=== PATIENT | female | born 1965 | race Caucasian/White ===

== ENCOUNTER 2022-06-17 12:23 | Observation (INO) | payer OTHER ==
[2022-06-17] MEDS ORDERED: Sodium Chloride 0.9% 1000 ML 1,000 ML IV STA (12:51)
--- NOTE | 2022-06-17 13:11 | ERPHSYRPT ---
- History of Present Illness Time Seen by Provider: 06/17/22 13:07 Source: patient Exam Limitations: no limitations Patient Subjective Stated Complaint: Pt c/o of vomiting, left leg pain, body aches, hip pain, cough all since after eating [employer] Triage Nursing Assessment: Pt brought to the ER by her daughter, hypertensive, rates pain as 10/10, appears weak, chronic hip pain, chronic lumbar pain, pulses normal, skin n/w/d, N&V, denies diarrhea, all over body aches, unstable gait walking to the restroom from the waiting room Physician History: Patient is 56-year-old female started having abdominal pain nausea vomiting since last after she ate at [employer]. She was taken into the emergency room on Saturday at [facility] where she was diagnosed with nausea and vomiting was given some medication but her symptoms continues to get worse and now she is complaining of generalized malaise hip pain leg pain also shortness of breath chest congestion. She is also complaining of low-grade fever. She denies any urine trouble nausea or vomiting. Timing/Duration: day(s) (2-3 days) Severity: moderate Associated Symptoms: malaise, weakness Allergies/Adverse Reactions: morphine Allergy (Verified 06/17/22 13:04) Home Medications: Diclofenac Sodium 75 mg PO BID 06/17/22 [History] Ondansetron [Ondansetron Odt ] 4 mg PO Q6H 06/17/22 [History] Prednisone 20 mg [Deltasone 20 mg] 40 mg PO QAM 06/17/22 [History] Hx Influenza Vaccination/Date Given: No Hx Pneumococcal Vaccination/Date Given: No Travel Risk - International Travel Have you traveled outside of the country in past 3 weeks: No - Coronavirus Screening Symptoms: Cough: New Onset, Vomiting/Diarrhea, Headaches/Body Aches/Fatigue Close contact with a COVID-19 positive Pt in past 14-21 Days: No - Vaccine Status Have you recieved a Covid-19 vaccination: No - Review of Systems Constitutional: Weakness, No Fever, No Chills Eyes: No Symptoms Ears, Nose, & Throat: No Symptoms Respiratory: Cough, Dyspnea on Exertion (ESPINOZA), No Dyspnea Cardiac: No Chest Pain, No Edema, No Syncope Abdominal/Gastrointestinal: No Abdominal Pain, No Nausea, No Vomiting, No Diarrhea Genitourinary Symptoms: No Dysuria Musculoskeletal: No Back Pain, No Neck Pain Skin: No Rash Neurological: No Dizziness, No Focal Weakness, No Sensory Changes Psychological: No Symptoms Endocrine: No Symptoms All Other Systems: Reviewed and Negative - Past Medical History Pertinent Past Medical History: Yes Cardiac History: Hypertension Musculoskeletal History: Other - Past Surgical History Past Surgical History: Yes Musculoskeletal: Orthopedic Surgery - Social History Smoking Status: Current every day smoker Exposure to second hand smoke: Yes Drug Use: marijuana Patient Lives Alone: No - Nursing Vital Signs Nursing Vital Signs: Initial Vital Signs Temperature 97.8 F 06/17/22 12:43 Pulse Rate 99 H 06/17/22 12:43 Respiratory Rate 14 06/17/22 12:43 Blood Pressure 180/97 06/17/22 12:43 O2 Sat by Pulse Oximetry 94 L 06/17/22 12:43 Pain Scale Pain Intensity 10 - Physical Exam General Appearance: no apparent distress, alert Eye Exam: PERRL/EOMI, eyes nml inspection Ears, Nose, Throat Exam: normal ENT inspection, TMs normal, pharynx normal, moist mucous membranes Neck Exam: normal inspection, non-tender, supple, full range of motion Respiratory Exam: diminished breath sounds, crackles/rales, No respiratory distress Cardiovascular Exam: regular rate/rhythm, normal heart sounds, normal peripheral pulses Gastrointestinal/Abdomen Exam: soft, normal bowel sounds, No tenderness, No mass Back Exam: normal inspection, normal range of motion, No CVA tenderness, No vertebral tenderness Extremity Exam: normal inspection, normal range of motion, pelvis stable Neurologic Exam: alert, oriented x 3, cooperative, normal mood/affect, nml cerebellar function, nml station & gait, sensation nml, No motor deficits Skin Exam: normal color, warm, dry, No rash Lymphatic Exam: No adenopathy SpO2: 94 Ordered Tests: Active Orders 24 hr Category Date Time Status EKG-ER Only STAT Care 06/17/22 12:51 Active IV Insertion STAT Care 06/17/22 12:51 Active CHEST 2 VIEWS (PA AND LAT) Stat Exams 06/17/22 13:22 Taken AMYLASE Stat Lab 06/17/22 13:03 Completed CBC W DIFF Stat Lab 06/17/22 13:03 Completed CMP Stat Lab 06/17/22 13:03 Completed CULTURE,URINE Stat Lab 06/17/22 13:03 Received LIPASE Stat Lab 06/17/22 13:03 Completed Manual Differential NC Stat Lab 06/17/22 13:03 Completed TROPONIN Stat Lab 06/17/22 13:03 Completed UA W/RFX CULTURE Stat Lab 06/17/22 13:03 Results Urine Triage Profile Stat Lab 06/17/22 13:03 Completed Medication Summary Generic Name Dose Route Start Last Admin Trade Name Freq PRN Reason Stop Dose Admin Ceftriaxone Sodium/Dextrose 1 g in 50 mls @ 100 mls/hr 06/17/22 13:54 Rocephin 1 Gm-D5w 50 Ml Bag IV 06/17/22 14:23 STAT STA Discontinued Medications Generic Name Dose Route Start Last Admin Trade Name Freq PRN Reason Stop Dose Admin Sodium Chloride 1,000 mls @ 999 mls/hr 06/17/22 12:51 06/17/22 13:33 Sodium Chloride 0.9% 1000 Ml IV 06/17/22 13:51 999 mls/hr .Q1H1M STA Administration Sodium Chloride Confirm 06/17/22 13:32 Sodium Chloride 0.9% 1000 Ml Administered 06/17/22 13:33 Dose 1,000 mls @ ud .ROUTE .STK-MED ONE Lab/Rad Data: Laboratory Result Diagrams 06/17/22 13:03 06/17/22 13:03 Laboratory Results 06/17/22 06/17/22 06/17/22 Range/Units 13:03 13:03 13:03 WBC 14.2 H (4.0-10.5) x10^3/uL RBC 4.87 (4.1-5.4) x10^6/uL Hgb 15.3 (12.0-16.0) g/dL Hct 45.2 (35-47) % MCV 92.8 (78-100) fL MCH 31.4 (26-32) pg MCHC 33.8 (32-36) g/dL RDW 13.4 (11.5-14.0) % Plt Count 104 L (150-450) x10^3/uL MPV 11.2 H (7.5-11.0) fL Sodium 129 L (137-145) mmol/L Potassium 3.8 (3.5-5.1) mmol/L Chloride 94 L (98-107) mmol/L Carbon Dioxide 24 (22-30) mmol/L Anion Gap 14.3 (5-15) MEQ/L BUN 41 H (7-17) mg/dL Creatinine 2.10 H (0.52-1.04) mg/dL Estimated GFR 25.8 ML/MIN Glucose 115 H (74-106) mg/dL Calcium 8.1 L (8.4-10.2) mg/dL Total Bilirubin 1.70 H (0.2-1.3) mg/dL AST 37 H (14-36) U/L ALT 28 (0-35) U/L Alkaline Phosphatase 103 (38-126) U/L Troponin I < 0.012 (0.000-0.034) ng/mL Serum Total Protein 7.2 (6.3-8.2) g/dL Albumin 3.6 (3.5-5.0) g/dL Amylase 41 (30-110) U/L Lipase 18 L (23-300) U/L Urinalys Dipstick Clnc MAIN LAB Urine Color YELLOW (YELLOW) Urine Appearance CLEAR (CLEAR) Urine pH 5.5 (5-6) Ur Specific [place] 1.010 (1.005-1.025) POC Urine Protein Conf 100 (Negative) Urine Ketones NEGATIVE (NEGATIVE) Urine Nitrite NEGATIVE (NEGATIVE) Urine Bilirubin NEGATIVE (NEGATIVE) Urine Urobilinogen 1 (0-1) mg/dL Urine Leukocytes NEGATIVE (NEGATIVE) Urine WBC (Auto) Pending Urine RBC (Auto) Pending U Epithel Cells (Auto) Pending Urine Bacteria (Auto) Pending Urine RBC TRACE HEMOLYZED (0-5) Michel/ul Ur Culture Indicated? YES Urine Glucose NEGATIVE (NEGATIVE) mg/dL Urine Opiates Level (NEGATIVE) Ur Methadone (NEGATIVE) Urine Barbiturates (NEGATIVE) Ur Phencyclidine (PCP) (NEGATIVE) Urine Amphetamine (NEGATIVE) U Benzodiazepine Level (NEGATIVE) Urine Cocaine (NEGATIVE) Urine Marijuana (THC) (NEGATIVE) 06/17/22 Range/Units 13:03 WBC (4.0-10.5) x10^3/uL RBC (4.1-5.4) x10^6/uL Hgb (12.0-16.0) g/dL Hct (35-47) % MCV (78-100) fL MCH (26-32) pg MCHC (32-36) g/dL RDW (11.5-14.0) % Plt Count (150-450) x10^3/uL MPV (7.5-11.0) fL Sodium (137-145) mmol/L Potassium (3.5-5.1) mmol/L Chloride (98-107) mmol/L Carbon Dioxide (22-30) mmol/L Anion Gap (5-15) MEQ/L BUN (7-17) mg/dL Creatinine (0.52-1.04) mg/dL Estimated GFR ML/MIN Glucose (74-106) mg/dL Calcium (8.4-10.2) mg/dL Total Bilirubin (0.2-1.3) mg/dL AST (14-36) U/L ALT (0-35) U/L Alkaline Phosphatase (38-126) U/L Troponin I (0.000-0.034) ng/mL Serum Total Protein (6.3-8.2) g/dL Albumin (3.5-5.0) g/dL Amylase (30-110) U/L Lipase (23-300) U/L Urinalys Dipstick Clnc Urine Color (YELLOW) Urine Appearance (CLEAR) Urine pH (5-6) Ur Specific [place] (1.005-1.025) POC Urine Protein Conf (Negative) Urine Ketones (NEGATIVE) Urine Nitrite (NEGATIVE) Urine Bilirubin (NEGATIVE) Urine Urobilinogen (0-1) mg/dL Urine Leukocytes (NEGATIVE) Urine WBC (Auto) Urine RBC (Auto) U Epithel Cells (Auto) Urine Bacteria (Auto) Urine RBC (0-5) Michel/ul Ur Culture Indicated? Urine Glucose (NEGATIVE) mg/dL Urine Opiates Level NEGATIVE (NEGATIVE) Ur Methadone NEGATIVE (NEGATIVE) Urine Barbiturates NEGATIVE (NEGATIVE) Ur Phencyclidine (PCP) NEGATIVE (NEGATIVE) Urine Amphetamine NEGATIVE (NEGATIVE) U Benzodiazepine Level NEGATIVE (NEGATIVE) Urine Cocaine NEGATIVE (NEGATIVE) Urine Marijuana (THC) POSITIVE (NEGATIVE) - Progress Progress: unchanged Will see patient in: hospital (observation) Counseled pt/family regarding: lab results, diagnosis, need for follow-up, rad results - Departure Departure Disposition: Observation Clinical Impression: Acute renal injury due to hypovolemia, Pyelonephritis, Elevated liver enzymes Condition: Fair Critical Care Time: Yes Critical Care Time(excluding separately billable procedures): Critical 30-74 mi ns Referrals: Provider,Unknown [Primary Care Provider] - Follow up/PCP as directed
[2022-06-17 13:23] LABS: Hematocrit 45.2 % (35-47); Hemoglobin 15.3 g/dL (12.0-16.0); Mean Cell Volume 92.8 fL (78-100); Mean Corpuscular Hemoglobin 31.4 pg (26-32); Mean Corpuscular Hgb Concent. 33.8 g/dL (32-36); Mean Platelet Volume 11.2 fL (7.5-11.0); Platelet Count 104 x10^3/uL (150-450); Red Blood Count 4.87 x10^6/uL (4.1-5.4); Red Cell Distribution Width 13.4 % (11.5-14.0); White Blood Count 14.2 x10^3/uL (4.0-10.5)
[2022-06-17 13:30] LABS: Appearance CLEAR (CLEAR)
[2022-06-17 13:31] LABS: Bilirubin NEGATIVE (NEGATIVE); Dipstick done @ ? MAIN LAB; Glucose NEGATIVE (NEGATIVE); Ketones NEGATIVE (NEGATIVE); Nitrite NEGATIVE (NEGATIVE); Ph 5.5 (5-6); Protein,Urine Dip 100 (Negative); RBC TRACE HEMOLYZED Ery/ul (0-5); Urine Cultured Indicated? YES; Urobilinogen 1 mg/dL (0-1)
[2022-06-17] MEDS ORDERED: Sodium Chloride 0.9% 1000 ML 1,000 ML ONE (13:32)
[2022-06-17 13:37] LABS: Amphetamine,Urine NEGATIVE (NEGATIVE); Barbiturate,Urine NEGATIVE (NEGATIVE); Benzodiazepine,Urine NEGATIVE (NEGATIVE); Cocaine,Urine NEGATIVE (NEGATIVE); Methadone,Urine NEGATIVE (NEGATIVE); Opiate,Urine NEGATIVE (NEGATIVE); PCP,Urine NEGATIVE (NEGATIVE); THC,Urine POSITIVE (NEGATIVE)
[2022-06-17 13:45] LABS: ALBUMIN 3.6 g/dL (3.5-5.0); ALKALINE PHOSPHATASE 103 U/L (38-126); AMYLASE 41 U/L (30-110); ANION GAP 14.3 MEQ/L (5-15); BLOOD UREA NITROGEN 41 mg/dL (7-17); CHLORIDE 94 mmol/L (98-107); Calcium 8.1 mg/dL (8.4-10.2); Carbon Dioxide 24 mmol/L (22-30); EST GLOMERULAR FILTRATION RATE 25.8 ML/MIN; Glucose 115 mg/dL (74-106); LIPASE 18 U/L (23-300); Potassium 3.8 mmol/L (3.5-5.1); SGOT/AST 37 U/L (14-36); SGPT/ALT 28 U/L (0-35); SODIUM 129 mmol/L (137-145); TROPONIN < 0.012 ng/mL (0.000-0.034); Total Protein 7.2 g/dL (6.3-8.2)
[2022-06-17] MEDS ORDERED: ROCEPHIN 1 Gm-D5w 50 ml Bag** 1 G/50 ML IVPB IV STA (13:54)
[2022-06-17] MEDS ORDERED: ROCEPHIN 1 Gm-D5w 50 ml Bag** 1 G/50 ML IVPB IV ONE (14:09)
[2022-06-17 14:13] LABS: Amourphous Crystal FEW /HPF (NEGATIVE); Mucus SLIGHT /HPF (NEGATIVE); WBC 0-2 /HPF (0-5)
[2022-06-17 14:22] LABS: Bacteria FEW /HPF (NEGATIVE)
[2022-06-17 15:12] LABS: BAND 6 % (0.0-2.0); Lymphocytes 1 % (24-44); Monocyte 6 % (0.0-12.0); Total Cells Counted 100
[2022-06-17 15:14] LABS: Platelet Estimate INCREASED (NORMAL)
[2022-06-17 15:15] LABS: Hypersegmented Polys 1+
[2022-06-17 15:25] LABS: INFLUENZA A NEGATIVE (NEGATIVE); INFLUENZA B NEGATIVE (NEGATIVE); RESPIRATORY SYNCTIAL VIRUS NEGATIVE (Negative); SARS-CoV-2 Xpert Express NEGATIVE (NEGATIVE)
[2022-06-17] MEDS: SUBLIMAZE 100 MCG/2 ML IV PRN ×2 (16:33→22:36)
[2022-06-17] MEDS: PROTONIX 40 MG IV IV SCH (16:33)
[2022-06-17] MEDS: Zofran 4 MG/2 ML VIAL IV PRN ×2 (16:40→22:37)
[2022-06-17] MEDS: Sodium Chloride 0.9% 1000 ML 1,000 ML IV SCH (18:54)
[2022-06-17] MEDS: TRANDATE 20 MG/4 ML SYRINGE IV PRN (19:38)
[2022-06-17] MEDS: Pepcid 20 MG VIAL IV SCH (20:43)
--- NOTE | 2022-06-17 21:39 | XRAY ---
Indication: Short of breath. Vomiting. Suspect Covid 19. Comparison: None PA/lateral chest demonstrates left mid lung and right base subsegmental atelectasis/scarring. Remaining heart and lungs unremarkable. Bony thorax intact.
[2022-06-18] MEDS: Sodium Chloride 0.9% 1000 ML 1,000 ML IV SCH ×3 (01:19→21:05)
[2022-06-18] MEDS ORDERED: SUBLIMAZE 100 MCG/2 ML ONE (04:31)
[2022-06-18] MEDS: SUBLIMAZE 100 MCG/2 ML IV PRN ×4 (04:39→23:19)
[2022-06-18] MEDS: Zofran 4 MG/2 ML VIAL IV PRN ×4 (04:39→23:20)
[2022-06-18 06:09] LABS: Hematocrit 41.2 % (35-47); Hemoglobin 13.3 g/dL (12.0-16.0); Mean Corpuscular Hgb Concent. 32.3 g/dL (32-36); Mean Platelet Volume 11.8 fL (7.5-11.0); Platelet Count 80 x10^3/uL (150-450); Red Blood Count 4.29 x10^6/uL (4.1-5.4); Red Cell Distribution Width 13.5 % (11.5-14.0); White Blood Count 8.8 x10^3/uL (4.0-10.5)
[2022-06-18 06:15] LABS: ALBUMIN 2.9 g/dL (3.5-5.0); ANION GAP 9.2 MEQ/L (5-15); BILIRUBIN,TOTAL 1.1 mg/dL (0.2-1.3); Calcium 7.5 mg/dL (8.4-10.2); Creatinine 1 1.6 mg/dL (0.52-1.04); EST GLOMERULAR FILTRATION RATE 35.3 ML/MIN; Potassium 3.2 mmol/L (3.5-5.1); Total Protein 5.9 g/dL (6.3-8.2)
--- NOTE | 2022-06-18 09:28 | PCM.HP ---
History of Present Illness - Chief Complaint Chief Complaint: abdominal pain, hip and knee pain. for 3-4 days History of Present Illness: is a 56 year old female.started having abdominal pain nausea vomiting since last after she ate at [employer] She was taken into the emergen cy room on Saturday at [facility] where she was diagnosed with nausea and vomiting was given some medication but her symptoms continues to get worse and now she is complaining of generalized malaise hip pain leg pain also shortness of breath chest congestion. She is also complaining of low-grade fever. She denies any urine trouble nausea or vomiting. Timing/Duration: day(s) (2-3 days) Severity: moderate Associated Symptoms: malaise, weakness - Review of Systems Constitutional: No Fever, No Chills Eyes: No Symptoms Ears, Nose, & Throat: No Symptoms Respiratory: No Cough, No Short Of Breath Cardiac: No Chest Pain, No Edema, No Syncope Abdominal/Gastrointestinal: Abdominal Pain, Nausea, Vomiting, No Diarrhea Genitourinary Symptoms: No Dysuria Musculoskeletal: Joint Pain (hip and knee), No Back Pain, No Neck Pain Skin: No Rash Neurological: No Dizziness, No Focal Weakness, No Sensory Changes Psychological: No Symptoms Endocrine: No Symptoms Hematologic/Lymphatic: No Symptoms Immunological/Allergic: No Symptoms Medications & Allergies Home Medications: Home Medication List Diclofenac Sodium 75 mg PO BID 06/17/22 [History Confirmed 06/17/22] Ondansetron [Ondansetron Odt ] 4 mg PO Q6H 06/17/22 [History Confirmed 06/17/22] Prednisone 20 mg [Deltasone 20 mg] 40 mg PO QAM 06/17/22 [History Confirmed 06/17/22] Allergies/Adverse Reactions: Allergies Allergy/AdvReac Type Severity Reaction Status Date / Time morphine Allergy Verified 06/17/22 13:04 - Past Medical History Past Medical History: Yes Neurological History: No Pertinent History ENT History: No Pertinent History Cardiac History: Hypertension Respiratory History: No Pertinent History Endocrine Medical History: Hypothyroidism Musculoskelatal History: Other GI Medical History: No Pertinent History, Hepatitis History: No Pertinent History Pyscho-Social History: No Pertinent History Reproductive Disorders: No Pertinent History Comment: hepatitis c - Past Surgical History Past Surgical History: Yes Neuro Surgical History: No Pertinent History Cardiac History: No Pertinent History Respiratory Surgery: No Pertinent History GI Surgical History: No Pertinent History Genitourinary Surgical Hx: No Pertinent History Musculskeletal Surgical Hx: Orthopedic Surgery Female Surgical History: Section Other Surgical History: left rotator cuff - Social History Smoking Status: Current every day smoker How long have you smoked: 40 years Exposure to second hand smoke: No Alcohol: None Drug Use: marijuana - Physical Exam Vital Signs: Vital Signs - 24 hr Temp Pulse Resp BP Pulse Ox 06/18/22 07:50 95 06/18/22 07:36 98.6 F 81 16 182/82 96 06/18/22 07:00 98.6 F 81 16 182/82 96 06/18/22 04:00 97.3 F 80 17 160/74 95 06/17/22 23:46 97.1 F 83 17 160/76 98 06/17/22 23:20 98.7 F 78 16 149/78 94 L 06/17/22 20:47 78 149/78 06/17/22 19:48 98.7 F 88 16 185/93 94 L 06/17/22 19:15 94 L 06/17/22 15:30 97.9 F 84 16 209/95 96 06/17/22 15:29 97.9 F 84 16 209/95 96 06/17/22 15:15 97.8 F 80 19 94 L 06/17/22 14:39 80 19 154/113 94 L 06/17/22 14:01 94 L 06/17/22 12:43 97.8 F 99 H 14 180/97 94 L General Appearance: no apparent distress, alert Neurologic Exam: alert, oriented x 3, cooperative, normal mood/affect, nml cerebellar function, nml station & gait, sensation nml, No motor deficits Eye Exam: PERRL/EOMI, eyes nml inspection Ears, Nose, Throat Exam: normal ENT inspection, TMs normal, pharynx normal, moist mucous membranes Neck Exam: normal inspection, non-tender, supple, full range of motion Respiratory Exam: normal breath sounds, lungs clear, No respiratory distress Cardiovascular Exam: regular rate/rhythm, normal heart sounds, normal peripheral pulses Gastrointestinal/Abdomen Exam: soft, normal bowel sounds, No tenderness, No mass Back Exam: normal inspection, normal range of motion, No CVA tenderness, No vertebral tenderness Extremity Exam: normal inspection, normal range of motion, pelvis stable Skin Exam: normal color, warm, dry, No rash Lymphatic Exam: No adenopathy Results - Labs Lab/Micro Results: Lab Results-Last 24 Hours 06/17/22 06/17/22 06/17/22 Range/Units 13:03 13:03 13:03 WBC 14.2 H (4.0-10.5) x10^3/uL RBC 4.87 (4.1-5.4) x10^6/uL Hgb 15.3 (12.0-16.0) g/dL Hct 45.2 (35-47) % MCV 92.8 (78-100) fL MCH 31.4 (26-32) pg MCHC 33.8 (32-36) g/dL RDW 13.4 (11.5-14.0) % Plt Count 104 L (150-450) x10^3/uL MPV 11.2 H (7.5-11.0) fL Segmented Neutrophils 87 H (36.0-66.0) % Band Neutrophils 6 H (0.0-2.0) % Lymphocytes (Manual) 1 L (24-44) % Monocytes (Manual) 6 (0.0-12.0) % Hypersegmented Polys 1+ Platelet Estimate INCREASED (NORMAL) RBC Morphology ABNORMAL Sodium 129 L (137-145) mmol/L Potassium 3.8 (3.5-5.1) mmol/L Chloride 94 L (98-107) mmol/L Carbon Dioxide 24 (22-30) mmol/L Anion Gap 14.3 (5-15) MEQ/L BUN 41 H (7-17) mg/dL Creatinine 2.10 H (0.52-1.04) mg/dL Estimated GFR 25.8 ML/MIN Glucose 115 H (74-106) mg/dL Calcium 8.1 L (8.4-10.2) mg/dL Total Bilirubin 1.70 H (0.2-1.3) mg/dL AST 37 H (14-36) U/L ALT 28 (0-35) U/L Alkaline Phosphatase 103 (38-126) U/L Troponin I < 0.012 (0.000-0.034) ng/mL Serum Total Protein 7.2 (6.3-8.2) g/dL Albumin 3.6 (3.5-5.0) g/dL Amylase 41 (30-110) U/L Lipase 18 L (23-300) U/L Urinalys Dipstick Clnc Urine Color (YELLOW) Urine Appearance (CLEAR) Urine pH (5-6) Ur Specific [place] (1.005-1.025) POC Urine Protein Conf (Negative) Urine Ketones (NEGATIVE) Urine Nitrite (NEGATIVE) Urine Bilirubin (NEGATIVE) Urine Urobilinogen (0-1) mg/dL Urine Leukocytes (NEGATIVE) Urine WBC (Auto) (0-5) /HPF Urine RBC (Auto) (0-2) /HPF U Epithel Cells (Auto) (FEW) /HPF Urine Bacteria (Auto) (NEGATIVE) /HPF Urine RBC (0-5) Michel/ul Amorphous Crystals (NEGATIVE) /HPF Urine Mucus (Auto) (NEGATIVE) /HPF Ur Culture Indicated? Urine Glucose (NEGATIVE) mg/dL Urine Opiates Level NEGATIVE (NEGATIVE) Ur Methadone NEGATIVE (NEGATIVE) Urine Barbiturates NEGATIVE (NEGATIVE) Ur Phencyclidine (PCP) NEGATIVE (NEGATIVE) Urine Amphetamine NEGATIVE (NEGATIVE) U Benzodiazepine Level NEGATIVE (NEGATIVE) Urine Cocaine NEGATIVE (NEGATIVE) Urine Marijuana (THC) POSITIVE (NEGATIVE) Influenza Type A Ag (NEGATIVE) Influenza Type B Ag (NEGATIVE) RSV (PCR) (Negative) SARS-CoV-2 (PCR) (NEGATIVE) 06/17/22 06/17/22 06/18/22 Range/Units 13:03 Unknown 05:08 WBC (4.0-10.5) x10^3/uL RBC (4.1-5.4) x10^6/uL Hgb (12.0-16.0) g/dL Hct (35-47) % MCV (78-100) fL MCH (26-32) pg MCHC (32-36) g/dL RDW (11.5-14.0) % Plt Count (150-450) x10^3/uL MPV (7.5-11.0) fL Segmented Neutrophils (36.0-66.0) % Band Neutrophils (0.0-2.0) % Lymphocytes (Manual) (24-44) % Monocytes (Manual) (0.0-12.0) % Hypersegmented Polys Platelet Estimate (NORMAL) RBC Morphology Sodium 132 L (137-145) mmol/L Potassium 3.2 L (3.5-5.1) mmol/L Chloride 102 (98-107) mmol/L Carbon Dioxide 24 (22-30) mmol/L Anion Gap 9.2 (5-15) MEQ/L BUN 29 H (7-17) mg/dL Creatinine 1.60 H (0.52-1.04) mg/dL Estimated GFR 35.3 ML/MIN Glucose 119 H (74-106) mg/dL Calcium 7.5 L (8.4-10.2) mg/dL Total Bilirubin 1.10 (0.2-1.3) mg/dL AST 26 (14-36) U/L ALT 21 (0-35) U/L Alkaline Phosphatase 90 (38-126) U/L Troponin I (0.000-0.034) ng/mL Serum Total Protein 5.9 L (6.3-8.2) g/dL Albumin 2.9 L (3.5-5.0) g/dL Amylase (30-110) U/L Lipase (23-300) U/L Urinalys Dipstick Clnc MAIN LAB Urine Color YELLOW (YELLOW) Urine Appearance CLEAR (CLEAR) Urine pH 5.5 (5-6) Ur Specific [place] 1.010 (1.005-1.025) POC Urine Protein Conf 100 (Negative) Urine Ketones NEGATIVE (NEGATIVE) Urine Nitrite NEGATIVE (NEGATIVE) Urine Bilirubin NEGATIVE (NEGATIVE) Urine Urobilinogen 1 (0-1) mg/dL Urine Leukocytes NEGATIVE (NEGATIVE) Urine WBC (Auto) 0-2 (0-5) /HPF Urine RBC (Auto) NONE (0-2) /HPF U Epithel Cells (Auto) NONE (FEW) /HPF Urine Bacteria (Auto) FEW (NEGATIVE) /HPF Urine RBC TRACE HEMOLYZED (0-5) Michel/ul Amorphous Crystals FEW (NEGATIVE) /HPF Urine Mucus (Auto) SLIGHT (NEGATIVE) /HPF Ur Culture Indicated? YES Urine Glucose NEGATIVE (NEGATIVE) mg/dL Urine Opiates Level (NEGATIVE) Ur Methadone (NEGATIVE) Urine Barbiturates (NEGATIVE) Ur Phencyclidine (PCP) (NEGATIVE) Urine Amphetamine (NEGATIVE) U Benzodiazepine Level (NEGATIVE) Urine Cocaine (NEGATIVE) Urine Marijuana (THC) (NEGATIVE) Influenza Type A Ag NEGATIVE (NEGATIVE) Influenza Type B Ag NEGATIVE (NEGATIVE) RSV (PCR) NEGATIVE (Negative) SARS-CoV-2 (PCR) NEGATIVE (NEGATIVE) Microbiology 06/17/22 13:03 Urine Culture - Preliminary Urine, Void NO GROWTH TO DATE - Radiology Impressions Radiology Exams & Impressions: Radiology Procedures Category Date Time Status CHEST 2 VIEWS (PA AND LAT) Stat Exams 06/17/22 13:22 Completed GALLBLADDER [US] Routine Exams 06/19/22 08:00 Ordered RAD/CHEST 2 VIEWS (PA AND LAT) Indication: Short of breath. Vomiting. Suspect Covid 19. Comparison: None PA/lateral chest demonstrates left mid lung and right base subsegmental atelectasis/scarring. Remaining heart and lungs unremarkable. Bony thorax intact. - Other Procedures and Tests Respiratory Therapy 06/17/22 20:30 Oxygen Nasal Cannula 2 lpm Assessment/Plan (1) Pyelonephritis Current Visit: Yes Status: Acute Assessment & Plan: Chief Complaint Diagnosis pyelonephritis Allergies Allergy/AdvReac Type Severity Reaction Status Date / Time morphine Allergy Verified 06/17/22 13:04 Vital Signs (Last 24 hours) Temp Pulse Resp BP Pulse Ox 06/18/22 07:50 95 06/18/22 07:36 98.6 F 81 16 182/82 96 06/18/22 07:00 98.6 F 81 16 182/82 96 06/18/22 04:00 97.3 F 80 17 160/74 95 06/17/22 23:46 97.1 F 83 17 160/76 98 06/17/22 23:20 98.7 F 78 16 149/78 94 L 06/17/22 20:47 78 149/78 06/17/22 19:48 98.7 F 88 16 185/93 94 L 06/17/22 19:15 94 L 06/17/22 15:30 97.9 F 84 16 209/95 96 06/17/22 15:29 97.9 F 84 16 209/95 96 06/17/22 15:15 97.8 F 80 19 94 L 06/17/22 14:39 80 19 154/113 94 L 06/17/22 14:01 94 L 06/17/22 12:43 97.8 F 99 H 14 180/97 94 L Home Medications Medication Instructions Recorded Confirmed Last Taken Type Diclofenac Sodium 75 mg PO BID 06/17/22 06/17/22 06/16/22 History Ondansetron [Ondansetron Odt ] 4 mg PO Q6H 06/17/22 06/17/22 06/17/22 History Prednisone 20 mg [Deltasone 20 40 mg PO QAM 06/17/22 06/17/22 06/14/22 History mg] Current Medications Generic Name Dose Route Start Last Admin Trade Name Freq PRN Reason Stop Dose Admin Famotidine 20 mg 06/17/22 22:00 06/17/22 20:43 Famotidine 20 Mg/1 Vial IV 07/17/22 21:59 20 mg Q12HT FADIA Administration Fentanyl Citrate 50 mcg 06/17/22 16:15 06/18/22 04:39 Fentanyl Citrate 100 Mcg/2 Ml* Vial IV 06/22/22 16:14 50 mcg Q6H PRN Administration PAIN Sodium Chloride 1,000 mls @ 100 mls/hr 06/17/22 14:15 06/18/22 01:19 Sodium Chloride 0.9% 1000 Ml IV 07/17/22 14:14 100 mls/hr .Q10H FADIA Administration Ceftriaxone Sodium/Dextrose 1 g in 50 mls @ 100 mls/hr 06/18/22 10:00 Rocephin 1 Gm-D5w 50 Ml Bag IV 06/21/22 09:59 Q24H10 FADIA Labetalol HCl 10 mg 06/17/22 17:12 06/17/22 19:38 Labetalol Hcl 20 Mg/4 Ml Disp.Syringe IV 07/17/22 17:11 10 mg Q6H PRN Administration HYPERTENSION Ondansetron HCl 4 mg 06/17/22 14:02 06/18/22 04:39 Ondansetron Hcl 4 Mg/2 Ml Vial IV 07/17/22 14:01 4 mg Q6H PRN PRN Administration NAUSEA/VOMITING Pantoprazole Sodium 40 mg 06/17/22 16:00 06/17/22 16:33 Pantoprazole 40 Mg Vial IV 07/17/22 15:59 40 mg Q24H10 FADIA Administration Discontinued Medications Generic Name Dose Route Start Last Admin Trade Name Freq PRN Reason Stop Dose Admin Fentanyl Citrate Confirm 06/18/22 04:31 Fentanyl Citrate 100 Mcg/2 Ml* Vial Administered 06/18/22 04:32 Dose 100 mcg .ROUTE .STK-MED ONE Sodium Chloride 1,000 mls @ 999 mls/hr 06/17/22 12:51 06/17/22 14:36 Sodium Chloride 0.9% 1000 Ml IV 06/17/22 13:51 Infused .Q1H1M STA Infusion Sodium Chloride Confirm 06/17/22 13:32 Sodium Chloride 0.9% 1000 Ml Administered 06/17/22 13:33 Dose 1,000 mls @ ud .ROUTE .STK-MED ONE Ceftriaxone Sodium/Dextrose 1 g in 50 mls @ 100 mls/hr 06/17/22 13:54 06/17/22 14:28 Rocephin 1 Gm-D5w 50 Ml Bag IV 06/17/22 14:23 100 mls/hr STAT STA 100 mls/hr Administration Ceftriaxone Sodium/Dextrose Confirm 06/17/22 14:09 Rocephin 1 Gm-D5w 50 Ml Bag Administered 06/17/22 14:10 Dose 1 g in 50 mls @ ud IV .STK-MED ONE Intake & Output (Last 24 hours) 06/15/22 06/16/22 06/17/22 06/18/22 11:59 11:59 11:59 11:59 Intake Total 1932 Output Total 700 Balance 1232 Weight 75.9 kg Microbiology Results (Last 24 hours) 06/17/22 13:03 Urine, Void Urine Culture - Preliminary NO GROWTH TO DATE Laboratory Results (Last 24 hours) 06/18/22 06/17/22 06/17/22 05:08 Unknown 13:03 WBC RBC Hgb Hct MCV MCH MCHC RDW Plt Count MPV Segmented Neutrophils Band Neutrophils Lymphocytes (Manual) Monocytes (Manual) Hypersegmented Polys Platelet Estimate RBC Morphology Sodium 132 L Potassium 3.2 L Chloride 102 Carbon Dioxide 24 Anion Gap 9.2 BUN 29 H Creatinine 1.60 H Estimated GFR 35.3 Glucose 119 H Calcium 7.5 L Total Bilirubin 1.10 AST 26 ALT 21 Alkaline Phosphatase 90 Troponin I Serum Total Protein 5.9 L Albumin 2.9 L Amylase Lipase Urinalys Dipstick Clnc MAIN LAB Urine Color YELLOW Urine Appearance CLEAR Urine pH 5.5 Ur Specific [place] 1.010 POC Urine Protein Conf 100 Urine Ketones NEGATIVE Urine Nitrite NEGATIVE Urine Bilirubin NEGATIVE Urine Urobilinogen 1 Urine Leukocytes NEGATIVE Urine WBC (Auto) 0-2 Urine RBC (Auto) NONE U Epithel Cells (Auto) NONE Urine Bacteria (Auto) FEW Urine RBC TRACE HEMOLYZED Amorphous Crystals FEW Urine Mucus (Auto) SLIGHT Ur Culture Indicated? YES Urine Glucose NEGATIVE Urine Opiates Level Ur Methadone Urine Barbiturates Ur Phencyclidine (PCP) Urine Amphetamine U Benzodiazepine Level Urine Cocaine Urine Marijuana (THC) Influenza Type A Ag NEGATIVE Influenza Type B Ag NEGATIVE RSV (PCR) NEGATIVE SARS-CoV-2 (PCR) NEGATIVE 06/17/22 06/17/22 06/17/22 13:03 13:03 13:03 WBC 14.2 H RBC 4.87 Hgb 15.3 Hct 45.2 MCV 92.8 MCH 31.4 MCHC 33.8 RDW 13.4 Plt Count 104 L MPV 11.2 H Segmented Neutrophils 87 H Band Neutrophils 6 H Lymphocytes (Manual) 1 L Monocytes (Manual) 6 Hypersegmented Polys 1+ Platelet Estimate INCREASED RBC Morphology ABNORMAL Sodium 129 L Potassium 3.8 Chloride 94 L Carbon Dioxide 24 Anion Gap 14.3 BUN 41 H Creatinine 2.10 H Estimated GFR 25.8 Glucose 115 H Calcium 8.1 L Total Bilirubin 1.70 H AST 37 H ALT 28 Alkaline Phosphatase 103 Troponin I < 0.012 Serum Total Protein 7.2 Albumin 3.6 Amylase 41 Lipase 18 L Urinalys Dipstick Clnc Urine Color Urine Appearance Urine pH Ur Specific [place] POC Urine Protein Conf Urine Ketones Urine Nitrite Urine Bilirubin Urine Urobilinogen Urine Leukocytes Urine WBC (Auto) Urine RBC (Auto) U Epithel Cells (Auto) Urine Bacteria (Auto) Urine RBC Amorphous Crystals Urine Mucus (Auto) Ur Culture Indicated? Urine Glucose Urine Opiates Level NEGATIVE Ur Methadone NEGATIVE Urine Barbiturates NEGATIVE Ur Phencyclidine (PCP) NEGATIVE Urine Amphetamine NEGATIVE U Benzodiazepine Level NEGATIVE Urine Cocaine NEGATIVE Urine Marijuana (THC) POSITIVE Influenza Type A Ag Influenza Type B Ag RSV (PCR) SARS-CoV-2 (PCR) Orders (Last 24 hours) Category Date Time Status Up Ad Milana ROUTINE Activity 06/17/22 14:03 Active Code Status Order ROUTINE Care 06/17/22 14:02 Active EKG-ER Only STAT Care 06/17/22 12:51 Active IV Care Q6H Care 06/17/22 14:02 Active IV Insertion STAT Care 06/17/22 12:[address] in Observation ROUTINE Care 06/17/22 14:02 Active Nichole Vigil ROUTINE Care 06/17/22 14:02 Active Telemetry q6h Care 06/17/22 15:20 Active Vital Signs Q6H Care 06/17/22 14:02 Active Content Designer/Discharge Plan ROUTINE Cons 06/17/22 15:57 Active Heart-Healthy Diet Diet 06/17/22 Dinner Active Nutritional Admission Screen ONCE Diet 06/17/22 15:45 Active CHEST 2 VIEWS (PA AND LAT) Stat Exams 06/17/22 13:22 Completed GALLBLADDER [US] Routine Exams 06/19/22 08:00 Ordered AMYLASE Stat Lab 06/17/22 13:03 Completed CBC W DIFF AM.LAB Lab 06/18/22 05:08 Received CBC W DIFF Stat Lab 06/17/22 13:03 Completed CMP AM.LAB Lab 06/18/22 05:08 Completed CMP Stat Lab 06/17/22 13:03 Completed CULTURE,URINE Stat Lab 06/17/22 13:03 Results LIPASE Stat Lab 06/17/22 13:03 Completed Manual Differential NC Stat Lab 06/17/22 13:03 Completed TROPONIN Stat Lab 06/17/22 13:03 Completed UA W/RFX CULTURE Stat Lab 06/17/22 13:03 Completed Urine Triage Profile Stat Lab 06/17/22 13:03 Completed Ceftriaxone 1 GM/50 ML PREMIX* [ROCEPHIN 1 Gm-D5w 50 ml Med 06/18/22 10:00 Active Bag] 1 g in 50 ml IV Q24H10 Ceftriaxone 1 GM/50 ML PREMIX* [ROCEPHIN 1 Gm-D5w 50 ml Med 06/17/22 13:54 Discontinued Bag] 1 g in 50 ml IV STAT Ceftriaxone 1 GM/50 ML PREMIX* [ROCEPHIN 1 Gm-D5w 50 ml Med 06/17/22 14:09 Discontinued Bag] 1 g in 50 ml IV UD Famotidine 20 mg Vial [Pepcid 20 MG VIAL] Med 06/17/22 22:00 Active 20 mg IV Q12HT Fentanyl Citrate 100 Mcg/2 ml* [Sublimaze 100 Mcg/2 ml* Med 06/18/22 04:31 Discontinued ] 100 mcg .ROUTE .STK-MED ONE Fentanyl Citrate 100 Mcg/2 ml* [Sublimaze 100 Mcg/2 ml* Med 06/17/22 16:15 Active ] 50 mcg IV Q6H PRN Labetalol HCl 20 mg/4 ml [Trandate 20 mg/4 ml Med 06/17/22 17:12 Active Syringe] 10 mg IV Q6H PRN NaCl 0.9% 1000 ml [Sodium Chloride 0.9% 1000 ML] 1,000 Med 06/17/22 13:32 Discontinued ml .ROUTE UD NaCl 0.9% 1000 ml [Sodium Chloride 0.9% 1000 ML] 1,000 Med 06/17/22 14:15 Active ml IV 100 mls/hr NaCl 0.9% 1000 ml [Sodium Chloride 0.9% 1000 ML] 1,000 Med 06/17/22 12:51 Discontinued ml IV 999 mls/hr Ondansetron HCl 4 mg/2 ml [Zofran 4 MG/2 ML VIAL] Med 06/17/22 14:02 Active 4 mg IV Q6H PRN PRN Pantoprazole 40 mg [Protonix 40 mg IV] Med 06/17/22 16:00 Active 40 mg IV Q24H10 Oxygen Nasal Cannula 2 lpm RT 06/17/22 20:30 Active Pulse Oximetry .spot check RT 06/17/22 20:31 Active Smoking Cessation Education ONCE RT 06/17/22 15:45 Completed Patient Care Notes (Last 24 hours) 06/17/22 17:45 (created 06/17/22 18:51) Nursing Note by Carissa Hinojosa Dr. updated on pt's contiinued HTN after receiving pain med. New order for Labetalol 10mg IV q6h PRN for SBP>150 Initialized on 06/17/22 18:51 - END OF NOTE Code(s): N12 - TUBULO-INTERSTITIAL NEPHRITIS, NOT SPCF ACUTE OR CHRONIC (2) Acute renal injury due to hypovolemia Current Visit: Yes Status: Acute Code(s): N17.9 - ACUTE KIDNEY FAILURE, UNSPECIFIED; E86.1 - HYPOVOLEMIA (3) Elevated liver enzymes Current Visit: Yes Status: Acute Code(s): R74.8 - ABNORMAL LEVELS OF OTHER SERUM ENZYMES (4) Elevated blood pressure reading Current Visit: Yes Status: Acute Assessment & Plan: will follow Code(s): R03.0 - ELEVATED BLOOD-PRESSURE READING, W/O DIAGNOSIS OF HTN
[2022-06-18] MEDS: Pepcid 20 MG VIAL IV SCH ×2 (10:49→20:50)
[2022-06-18] MEDS: ROCEPHIN 1 Gm-D5w 50 ml Bag** 1 G/50 ML IVPB IV SCH (10:49)
[2022-06-18] MEDS: PROTONIX 40 MG IV IV SCH (10:49)
[2022-06-18] MEDS: TRANDATE 20 MG/4 ML SYRINGE IV PRN (10:51)
[2022-06-18] MEDS: NORVASC 5 MG PO SCH (12:00)
[2022-06-18 18:09] LABS: Eosinophil 1 % (0.00-3.0); Lymphocytes 9 % (24-44); Monocyte 5 % (0.0-12.0); Platelet Estimate DECREASED (NORMAL); Total Cells Counted 100
--- NOTE | 2022-06-18 18:46 | XRAY ---
Indication: Right abdomen pain. Nausea and vomiting. Multiple contiguous axial images obtained through the abdomen and pelvis without contrast. Comparison: None Lung bases demonstrates moderate right lower lobe consolidating airspace disease with tiny effusion. Mild lingula and left base subsegmental atelectasis/scarring. Heart not enlarged. Noncontrasted stomach and bowel loops appear nonobstructed with normal appendix. Sigmoid diverticulosis without diverticulitis. There is a 5 mm right UVJ calculus. Proximal right ureter is mildly prominent along with mild hydronephrosis and significant renal edema/perinephric stranding consistent with obstructive uropathy. No free fluid/air. Incidental centimeter and subcentimeter uterine calcified fibroids. Remaining liver, gallbladder, pancreas, spleen, adrenal glands, left kidney, left ureter, bladder, and uterus are unremarkable for noncontrast exam. Moderate scattered aortoiliac calcifications without AAA. Osseous structures intact with mild degenerative changes throughout the thoracolumbar spine. Impression: 1. 5 mm right UVJ calculus producing high-grade obstructive uropathy as detailed. 2. Right lower lobe consolidating airspace disease with tiny effusion. 3. Incidental small uterine calcified fibroids, sigmoid diverticulosis, arteriosclerotic disease, and degenerative spondylosis. Comment: Preliminary interpretation made by [facility]. No critical discrepancy.
[2022-06-19] MEDS: SUBLIMAZE 100 MCG/2 ML IV PRN (05:21)
[2022-06-19 07:01] LABS: Hemoglobin 12.9 g/dL (12.0-16.0); Mean Cell Volume 97.1 fL (78-100); Mean Corpuscular Hemoglobin 31.3 pg (26-32); Mean Corpuscular Hgb Concent. 32.3 g/dL (32-36); Mean Platelet Volume 11.1 fL (7.5-11.0); Platelet Count 92 x10^3/uL (150-450); Red Blood Count 4.12 x10^6/uL (4.1-5.4); Red Cell Distribution Width 13.8 % (11.5-14.0); White Blood Count 8.3 x10^3/uL (4.0-10.5)
[2022-06-19] MEDS: Sodium Chloride 0.9% 1000 ML 1,000 ML IV SCH (07:20)
[2022-06-19 07:30] LABS: ALBUMIN 2.8 g/dL (3.5-5.0); ANION GAP 11.6 MEQ/L (5-15); BILIRUBIN,TOTAL 1.3 mg/dL (0.2-1.3); Creatinine 1 1.31 mg/dL (0.52-1.04); EST GLOMERULAR FILTRATION RATE 44.5 ML/MIN; Potassium 3.1 mmol/L (3.5-5.1); Total Protein 5.9 g/dL (6.3-8.2)
[2022-06-19 09:25] VITALS: PULSE 68
[2022-06-19] MEDS: TRANDATE 20 MG/4 ML SYRINGE IV PRN (09:35)
[2022-06-19] MEDS ORDERED: Hydromorphone 1 mg/ml Injection IV PRN (09:44)
[2022-06-19 10:05] LABS: Slide Review YES
[2022-06-19] MEDS: Pepcid 20 MG VIAL IV SCH (10:19)
--- NOTE | 2022-06-19 10:26 | XRAY ---
Indication: Elevated liver enzymes. Two-dimensional gallbladder sonogram performed. Comparison: None Visualized gallbladder normally distended with small intraluminal sludge. No gallstones, wall thickening, or pericholecystic fluid. Common bile duct measures 5.1 mm. Remaining visualized liver and pancreas are sonographically unremarkable. Right kidney measures 11.5 cm in length with mild hydronephrosis due to CT proven right UVJ calculus. Impression: 1. Gallbladder sludge. Negative cholelithiasis/acute cholecystitis. 2. Right renal hydronephrosis due to CT proven right UVJ calculus.
[2022-06-19] MEDS: NORVASC 5 MG PO SCH (11:25)
[2022-06-19] MEDS: PROTONIX 40 MG IV IV SCH (11:25)
[2022-06-19] MEDS: ROCEPHIN 1 Gm-D5w 50 ml Bag** 1 G/50 ML IVPB IV SCH (11:26)
[2022-06-19 12:29] VITALS: BP 156/71; O2SAT 90
--- NOTE | 2022-06-19 13:08 | PCM.DS ---
Discharge Summary Date of Admission: 06/17/22 15:20 Admitting Physician: FRANDY MARQUEZ Primary Care Provider: NO FAMILY DOCTOR Allergies Allergies morphine Allergy (Verified 06/17/22 13:04) Hospital Summary - Hospital Course Hospital Course: Patient still complaining of abdominal pain. Patient's CT abdomen and pelvis did show ureteropelvic junctions 5 mm stone on the right side. Patient already ultrasound also didn't show gallbladder sludge. Urology service at [facility] was contacted and accepted the patient. Hospitalist service ACCEPTED the patient. We will transfer the patient to [facility] for further intolerance and to remove the ureteric stone. - Vitals & Intake/Output Vital Signs: Vital Signs Temperature 97.5 F 06/19/22 12:28 Pulse Rate 68 06/19/22 12:28 Respiratory Rate 17 06/19/22 12:28 Blood Pressure 156/71 06/19/22 12:28 O2 Sat by Pulse Oximetry 90 L 06/19/22 12:28 Intake & Output: Intake & Output 06/17/22 06/18/22 06/19/22 06/20/22 11:59 11:59 11:59 11:59 Intake Total 1991 2860 Output Total 700 Balance 1292 2860 Weight 75.9 kg - Lab Result Diagrams: 06/19/22 06:50 06/19/22 06:50 Lab Results-Last 24 Hrs: Lab Results-Last 24 Hours 06/18/22 06/19/22 06/19/22 Range/Units 05:08 06:50 06:50 WBC 8.3 (4.0-10.5) x10^3/uL RBC 4.12 (4.1-5.4) x10^6/uL Hgb 12.9 (12.0-16.0) g/dL Hct 40.0 (35-47) % MCV 97.1 (78-100) fL MCH 31.3 (26-32) pg MCHC 32.3 (32-36) g/dL RDW 13.8 (11.5-14.0) % Plt Count 92 L (150-450) x10^3/uL MPV 11.1 H (7.5-11.0) fL Segmented Neutrophils 85 H (36.0-66.0) % Lymphocytes (Manual) 9 L (24-44) % Monocytes (Manual) 5 (0.0-12.0) % Eosinophils (Manual) 1 (0.00-3.0) % Platelet Estimate DECREASED (NORMAL) RBC Morphology NORMAL Sodium 134 L (137-145) mmol/L Potassium 3.1 L (3.5-5.1) mmol/L Chloride 104 (98-107) mmol/L Carbon Dioxide 22 (22-30) mmol/L Anion Gap 11.6 (5-15) MEQ/L BUN 19 H (7-17) mg/dL Creatinine 1.31 H (0.52-1.04) mg/dL Estimated GFR 44.5 ML/MIN Glucose 88 (74-106) mg/dL Calcium 8.0 L (8.4-10.2) mg/dL Total Bilirubin 1.30 (0.2-1.3) mg/dL AST 23 (14-36) U/L ALT 17 (0-35) U/L Alkaline Phosphatase 102 (38-126) U/L Serum Total Protein 5.9 L (6.3-8.2) g/dL Albumin 2.8 L (3.5-5.0) g/dL Slides for Path Review YES Micro Results-Entire Visit: Microbiology 06/17/22 13:03 Urine Culture - Final Urine, Void <10K NORMAL SKIN ALENA PROBABLE SKIN CONTAMINANT - Radiology Exams Ordered Rad Exams-Entire Visit: Radiology Procedures Category Date Time Status ABDOMEN AND PELVIS W/0 CONTRAS [CT] Routine Exams 06/18/22 12:00 Completed CHEST 2 VIEWS (PA AND LAT) Stat Exams 06/17/22 13:22 Completed GALLBLADDER [US] Routine Exams 06/19/22 08:[address]/ABDOMEN AND PELVIS W/0 CONTRAS Indication: Right abdomen pain. Nausea and vomiting. Multiple contiguous axial images obtained through the abdomen and pelvis without contrast. Comparison: None Lung bases demonstrates moderate right lower lobe consolidating airspace disease with tiny effusion. Mild lingula and left base subsegmental atelectasis/scarring. Heart not enlarged. Noncontrasted stomach and bowel loops appear nonobstructed with normal appendix. Sigmoid diverticulosis without diverticulitis. There is a 5 mm right UVJ calculus. Proximal right ureter is mildly prominent along with mild hydronephrosis and significant renal edema/perinephric stranding consistent with obstructive uropathy. No free fluid/air. Incidental centimeter and subcentimeter uterine calcified fibroids. Remaining liver, gallbladder, pancreas, spleen, adrenal glands, left kidney, left ureter, bladder, and uterus are unremarkable for noncontrast exam. Moderate scattered aortoiliac calcifications without AAA. Osseous structures intact with mild degenerative changes throughout the thoracolumbar spine. Impression: 1. 5 mm right UVJ calculus producing high-grade obstructive uropathy as detailed. 2. Right lower lobe consolidating airspace disease with tiny effusion. 3. Incidental small uterine calcified fibroids, sigmoid diverticulosis, arteriosclerotic disease, and degenerative spondylosis. - Procedures and Test Procedures and Tests throughout Hospitalization: Therapy Orders & Screens 06/17/22 15:45 Smoking Cessation Education ONCE Comment: Diagnosis: pyelonephritis Smoking Status: Current every day smoker How long have you smoked: 40 years Have you smoked in the past 12 months: Yes Approximately how many cigarettes per day: .5-1 ppd Do you dip or chew tobacco: No 06/17/22 20:30 Oxygen Nasal Cannula 2 lpm Comment: Diagnosis: pyelonephritis Discharge Exam General Appearance: no apparent distress, alert Neurologic Exam: alert, oriented x 3, cooperative, normal mood/affect, nml cerebellar function, sensation nml, No motor deficits Eye Exam: PERRL, EOMI, eyes nml inspection Ears, Nose, Throat Exam: normal ENT inspection, pharynx normal, moist mucous membranes Neck Exam: normal inspection, non-tender, supple, full range of motion Respiratory Exam: normal breath sounds, lungs clear, No respiratory distress Cardiovascular Exam: regular rate/rhythm, normal heart sounds Gastrointestinal/Abdomen Exam: soft, No tenderness, No mass Pelvic Exam: deferred Rectal Exam: deferred Back Exam: normal inspection, normal range of motion, No CVA tenderness, No vertebral tenderness Extremity Exam: normal inspection, normal range of motion Skin Exam: normal color, warm, dry Final Diagnosis/Problem List - Final Discharge Diagnosis/Problem (1) Obstruction of right ureteropelvic junction (UPJ) due to stone Current Visit: Yes Status: Acute Assessment & Plan: 0003 CT/ABDOMEN AND PELVIS W/0 CONTRAS Indication: Right abdomen pain. Nausea and vomiting. Multiple contiguous axial images obtained through the abdomen and pelvis without contrast. Comparison: None Lung bases demonstrates moderate right lower lobe consolidating airspace disease with tiny effusion. Mild lingula and left base subsegmental atelectasis/scarring. Heart not enlarged. Noncontrasted stomach and bowel loops appear nonobstructed with normal appendix. Sigmoid diverticulosis without diverticulitis. There is a 5 mm right UVJ calculus. Proximal right ureter is mildly prominent along with mild hydronephrosis and significant renal edema/perinephric stranding consistent with obstructive uropathy. No free fluid/air. Incidental centimeter and subcentimeter uterine calcified fibroids. Remaining liver, gallbladder, pancreas, spleen, adrenal glands, left kidney, left ureter, bladder, and uterus are unremarkable for noncontrast exam. Moderate scattered aortoiliac calcifications without AAA. Osseous structures intact with mild degenerative changes throughout the thoracolumbar spine. Impression: 1. 5 mm right UVJ calculus producing high-grade obstructive uropathy as detailed. 2. Right lower lobe consolidating airspace disease with tiny effusion. 3. Incidental small uterine calcified fibroids, sigmoid diverticulosis, arteriosclerotic disease, and degenerative spondylosis. I talked to the urology service at [facility] for further intervention for right ureteropelvic junction stone. The patient under hospitalist service. We'll transfer patient to [facility]. Code(s): N20.1 - CALCULUS OF URETER (2) Pyelonephritis Current Visit: Yes Status: Acute Code(s): N12 - TUBULO-INTERSTITIAL NEPHRITIS, NOT SPCF ACUTE OR CHRONIC (3) Acute renal injury due to hypovolemia Current Visit: Yes Status: Acute Code(s): N17.9 - ACUTE KIDNEY FAILURE, UNSPECIFIED; E86.1 - HYPOVOLEMIA (4) Elevated liver enzymes Current Visit: Yes Status: Acute Code(s): R74.8 - ABNORMAL LEVELS OF OTHER SERUM ENZYMES (5) Elevated blood pressure reading Current Visit: Yes Status: Acute Code(s): R03.0 - ELEVATED BLOOD-PRESSURE READING, W/O DIAGNOSIS OF HTN (6) Gall bladder stones Current Visit: Yes Status: Acute Code(s): K80.20 - CALCULUS OF GALLBLADDER W/O CHOLECYSTITIS W/O OBSTRUCTION - Discharge Discharge Date: 06/19/22 Disposition: DC TO [facility] Condition: Stable Prescriptions: No Action Prednisone 20 mg [Deltasone 20 mg] 40 mg PO QAM Ondansetron [Ondansetron Odt ] 4 mg PO Q6H Diclofenac Sodium 75 mg PO BID Follow up with: FRANDY MARQUEZ MD [Emergency Provider] -
== END 2022-06-19 12:50 | disposition short-term general hospital (02) ==
LOC: ED 12:23 → MED SURG 15:20
PROVIDERS: ADMIT General Practice; ATTEND General Practice
DX: N20.1 Calculus of ureter (principal); N12 Tubulo-interstitial nephritis, not specified as acute or chronic; N17.9 Acute kidney failure, unspecified; R74.8 Abnormal levels of other serum enzymes; R03.0 Elevated blood-pressure reading, without diagnosis of hypertension; K80.20 Calculus of gallbladder without cholecystitis without obstruction; I10 Essential (primary) hypertension; Z79.899 Other long term (current) drug therapy; Z20.828 Contact with and (suspected) exposure to other viral communicable diseases; Z72.0 Tobacco use
CPT/HCPCS: 0241U; 36000; 36415; 71046; 74176; 76705; 80053; 80307; 81015; 82150; 83690; 84484; 85025; 85027; 87086; 93005; 94760; 96360; 96365; 99285; 99291; 93268; J0696; J1170; J2405; J3010; A9270-GY; G0378

== ENCOUNTER 2022-06-22 21:04 | Observation (INO) | payer OTHER ==
[2022-06-22 23:06] LABS: Absolute Neutrophil Ct (ANC) 17.71 x10^3/uL (1.4-6.9); Basophil (Absolute #) 0.06 x10^3/uL (0-0.4); Eosinophil % 0.1 % (0.00-5.0); Eosinophil (Absolute #) 0.02 x10^3/uL (0-0.5); Hematocrit 39.1 % (35-47); Hemoglobin 12.7 g/dL (12.0-16.0); Lymphocyte (Absolute #) 1.47 x10^3/uL (1.0-4.6); Lymphocytes % 7.2 % (24.0-44.0); Mean Cell Volume 95.8 fL (78-100); Mean Corpuscular Hemoglobin 31.1 pg (26-32); Mean Corpuscular Hgb Concent. 32.5 g/dL (32-36); Monocyte (Absolute #) 0.87 x10^3/uL (0.0-1.3); Monocytes % 4.2 % (0.0-12.0); Neutrophil % 86.3 % (36.0-66.0); Platelet Count 155 x10^3/uL (150-450); Red Blood Count 4.08 x10^6/uL (4.1-5.4); Red Cell Distribution Width 14.6 % (11.5-14.0); White Blood Count 20.5 x10^3/uL (4.0-10.5)
--- NOTE | 2022-06-22 23:18 | ERPHSYRPT ---
- History of Present Illness Source: patient, other (Daughter) Exam Limitations: other (Very poor historian) Patient Subjective Stated Complaint: Daughter states "She was discharged from [facility] on Saturday but since then her legs have been swelling." Triage Nursing Assessment: Pt presents to ED by wheelchair along with daughter, pt assisted to bed x2, pt alert and oriented x3, pt c/o bilateral leg swelling since morning, +2 edema in bilateral legs and feet, pt also c/o chronic back pain as well as constipation, Last BM was today, pt sees pain management f or chronic back pain Physician History: 56 yo wf who just got released from [facility] 2 days ago after kidney stone removal presents w B LE edema x 1 day/abdominal pain/constipation/chronic hip- back pain. Pt denies chest pain/dyspnea/N/V/D/melena/hematochezia/fever/dysuria/ hematuria. Timing/Duration: yesterday Severity: mild Modifying Factors: Improves With: nothing Associated Symptoms: abdominal pain, malaise, weakness, No nausea, No vomiting, No shortness of breath, No heartburn, No diaphoresis, No cough, No chills, No chest pain, No fever, No headaches, No loss of appetite, No rash, No syncope, No seizure Allergies/Adverse Reactions: morphine Allergy (Verified 06/22/22 22:11) Home Medications: Diclofenac Sodium 75 mg PO BID 06/17/22 [History] Ondansetron [Ondansetron Odt ] 4 mg PO Q6H 06/17/22 [History] Prednisone 20 mg [Deltasone 20 mg] 40 mg PO QAM 06/17/22 [History] Hx Tetanus, Diphtheria Vaccination/Date Given: No Hx Influenza Vaccination/Date Given: No Hx Pneumococcal Vaccination/Date Given: No Immunizations Up to Date: No Travel Risk - International Travel Have you traveled outside of the country in past 3 weeks: No - Coronavirus Screening Are you exhibiting any of the following symptoms?: No Close contact with a COVID-19 positive Pt in past 14-21 Days: No - Vaccine Status Have you recieved a Covid-19 vaccination: No - Review of Systems Constitutional: No Symptoms, Lethargy, Malaise Eyes: No Symptoms Ears, Nose, & Throat: No Symptoms Respiratory: No Symptoms Cardiac: No Symptoms Abdominal/Gastrointestinal: No Symptoms, Abdominal Pain, Constipation Genitourinary Symptoms: No Symptoms Musculoskeletal: No Symptoms, Arthralgias, Back Pain Skin: No Symptoms Neurological: No Symptoms Psychological: No Symptoms Endocrine: No Symptoms Hematologic/Lymphatic: No Symptoms Immunological/Allergic: No Symptoms - Past Medical History Pertinent Past Medical History: Yes Neurological History: No Pertinent History ENT History: No Pertinent History Cardiac History: Hypertension Respiratory History: No Pertinent History Endocrine Medical History: Hypothyroidism Musculoskeletal History: Other GI Medical History: No Pertinent History, Hepatitis History: No Pertinent History Psycho-Social History: No Pertinent History Female Reproductive Disorders: No Pertinent History Other Medical History: hepatitis c - Past Surgical History Past Surgical History: Yes Neuro Surgical History: No Pertinent History Cardiac: No Pertinent History Respiratory: No Pertinent History Gastrointestinal: No Pertinent History Genitourinary: No Pertinent History Musculoskeletal: Orthopedic Surgery Female Surgical History: Section Other Surgical History: left rotator cuff, R kidney stent - Social History Smoking Status: Current every day smoker How long have you smoked: 40 years Exposure to second hand smoke: No Drug Use: marijuana Patient Lives Alone: No Significant Family History: no pertinent family hx - Nursing Vital Signs Nursing Vital Signs: Initial Vital Signs Temperature 97.1 F 06/22/22 22:10 Pulse Rate 73 06/22/22 22:10 Respiratory Rate 18 06/22/22 22:10 Blood Pressure 146/98 06/22/22 22:10 O2 Sat by Pulse Oximetry 93 L 06/22/22 22:10 Pain Scale Pain Intensity 10 Hypertensive/Borderline sats - Physical Exam General Appearance: no apparent distress Eye Exam: PERRL/EOMI, eyes nml inspection Ears, Nose, Throat Exam: normal ENT inspection, TMs normal, pharynx normal, moist mucous membranes Neck Exam: normal inspection, non-tender, supple, full range of motion, No men ingismus, No mass, No Brudzinski, No Kernig's, No carotid bruit Respiratory Exam: normal breath sounds, lungs clear, airway intact, No respiratory distress Cardiovascular Exam: regular rate/rhythm, normal heart sounds, normal peripheral pulses, capillary refill <2 sec, No murmur Gastrointestinal/Abdomen Exam: soft, normal bowel sounds, tenderness (Mild diffuse TTP wo guarding or rebound) Back Exam: normal inspection, No CVA tenderness, No vertebral tenderness Extremity Exam: pedal edema (1+ pre-tibial edema/No erythema/Good B pedal pulses, distal sensation and capillary return) Neurologic Exam: alert, oriented x 3, cooperative, spd manager II-XII nml as tested, normal mood/affect, nml cerebellar function, nml station & gait, sensation nml, No motor deficits, No sensory deficit Skin Exam: normal color, warm, dry Lymphatic Exam: No adenopathy SpO2 Interpretation: normal SpO2: 95 O2 Delivery: Room Air - Course Nursing assessment & vital signs reviewed: Yes EKG Interpreted by Me: RATE (Aflutter/Normal QT-QTc/Paced) - Radiology Exams Chest X-ray Interpretation: Interpreted by me (CXR NAD per ER read) - CT Exams Abdomen/Pelvis CT Interpretation: Tele-radiologist Report (R perinephric edema/R double J stent in good position/Wall thickening of proximal sigmoid colon) Ordered Tests: Active Orders 24 hr Category Date Time Status Consistent Carbohydrate Diet 1999 Calorie Diet 06/23/22 Breakfast Active ABDOMEN AND PELVIS W/0 CONTRAS [CT] Stat Exams 06/22/22 22:40 Completed CHEST 1 VIEW (PORTABLE) Stat Exams 06/22/22 22:39 Completed VENOUS BILATERAL EXTREMITY [US] Routine Exams 06/23/22 01:16 Completed BLOOD CULTURE Stat Lab 06/23/22 02:00 Received BMP AM.LAB Lab 06/23/22 05:20 Received CBC AM.LAB Lab 06/23/22 05:20 Completed CBC W DIFF Stat Lab 06/22/22 23:00 Completed CMP AM.LAB Lab 06/25/22 04:00 Ordered CMP Stat Lab 06/22/22 23:10 Completed CULTURE,URINE Stat Lab 06/22/22 23:12 Received D-DIMER QUANTITATIVE Stat Lab 06/22/22 23:10 Completed Lactic Acid Stat Lab 06/22/22 23:00 Completed NT PRO BNP Stat Lab 06/22/22 23:10 Completed PROTIME WITH INR Stat Lab 06/22/22 23:10 Completed PTT Stat Lab 06/22/22 23:10 Completed TROPONIN Q4H Lab 06/22/22 23:10 Completed TROPONIN Q4H Lab 06/23/22 02:07 Completed TROPONIN Q4H Lab 06/23/22 05:20 Received UA W/RFX CULTURE Stat Lab 06/22/22 23:12 Completed Transfer Order Routine Transfer 06/23/22 Completed Medication Summary Generic Name Dose Route Start Last Admin Trade Name Ilan PRN Reason Stop Dose Admin Furosemide 40 mg 06/23/22 10:00 Furosemide 40 Mg/4 Ml Vial IV 07/23/22 09:59 BID DIURETIC FADIA Potassium Chloride 40 meq 06/23/22 10:00 Potassium Chloride Tab 10 Meq Tab PO 07/23/22 09:59 TID FADIA Discontinued Medications Generic Name Dose Route Start Last Admin Trade Name Ilan PRN Reason Stop Dose Admin Furosemide 40 mg 06/23/22 01:45 06/23/22 02:13 Furosemide 40 Mg/4 Ml Vial IV 06/23/22 01:46 40 mg STAT ONE Administration Furosemide Confirm 06/23/22 02:11 Furosemide 40 Mg/4 Ml Vial Administered 06/23/22 02:12 Dose 40 mg .ROUTE .STK-MED ONE Ceftriaxone Sodium/Dextrose 1 g in 50 mls @ 100 mls/hr 06/23/22 01:47 06/23/22 02:57 Rocephin 1 Gm-D5w 50 Ml Bag IV 06/23/22 02:16 Infused STAT STA Infusion Ceftriaxone Sodium/Dextrose Confirm 06/23/22 02:11 Rocephin 1 Gm-D5w 50 Ml Bag Administered 06/23/22 02:12 Dose 1 g in 50 mls @ ud IV .STK-MED ONE Potassium Chloride 40 meq 06/23/22 00:24 06/23/22 00:28 Potassium Chloride Tab 10 Meq Tab PO 06/23/22 00:25 40 meq STAT ONE Administration Potassium Chloride Confirm 06/23/22 00:27 Potassium Chloride Tab 10 Meq Tab Administered 06/23/22 00:28 Dose 40 meq PO .STK-MED ONE Lab/Rad Data: Laboratory Result Diagrams 06/22/22 23:00 06/22/22 23:10 Laboratory Results 06/23/22 06/23/22 06/22/22 Range/Units 02:34 02:07 23:12 WBC (4.0-10.5) x10^3/uL RBC (4.1-5.4) x10^6/uL Hgb (12.0-16.0) g/dL Hct (35-47) % MCV (78-100) fL MCH (26-32) pg MCHC (32-36) g/dL RDW (11.5-14.0) % Plt Count (150-450) x10^3/uL MPV (7.5-11.0) fL Gran % (36.0-66.0) % Immature Gran % (Auto) (0.00-0.4) % Nucleat RBC Rel Count (0.00-0.1) % Eos # (Auto) (0-0.5) x10^3/uL Immature Gran # (Auto) (0.00-0.03) x10^3u/L Absolute Lymphs (auto) (1.0-4.6) x10^3/uL Absolute Monos (auto) (0.0-1.3) x10^3/uL Absolute Nucleated RBC (0.00-0.01) x10^3u/L Lymphocytes % (24.0-44.0) % Monocytes % (0.0-12.0) % Eosinophils % (0.00-5.0) % Basophils % (0.0-0.4) % Absolute Granulocytes (1.4-6.9) x10^3/uL Basophils # (0-0.4) x10^3/uL PT (9.4-12.5) SECONDS INR (0.8-3.0) APTT (25.1-36.5) SECONDS D-Dimer (0.0-0.50) mg/L Sodium (137-145) mmol/L Potassium (3.5-5.1) mmol/L Chloride (98-107) mmol/L Carbon Dioxide (22-30) mmol/L Anion Gap (5-15) MEQ/L BUN (7-17) mg/dL Creatinine (0.52-1.04) mg/dL Estimated GFR ML/MIN Glucose (74-106) mg/dL Lactic Acid (0.4-2.0) Calcium (8.4-10.2) mg/dL Total Bilirubin (0.2-1.3) mg/dL AST (14-36) U/L ALT (0-35) U/L Alkaline Phosphatase (38-126) U/L Troponin I < 0.012 (0.000-0.034) ng/mL NT-Pro-B Natriuret Pep (0-900) pg/mL Serum Total Protein (6.3-8.2) g/dL Albumin (3.5-5.0) g/dL Urinalys Dipstick Clnc MAIN LAB Urine Color YELLOW (YELLOW) Urine Appearance CLEAR (CLEAR) Urine pH 6.0 (5-6) Ur Specific [place] 1.010 (1.005-1.025) POC Urine Protein Conf TRACE (Negative) Urine Ketones NEGATIVE (NEGATIVE) Urine Nitrite NEGATIVE (NEGATIVE) Urine Bilirubin NEGATIVE (NEGATIVE) Urine Urobilinogen 0.2 (0-1) mg/dL Urine Leukocytes SMALL (NEGATIVE) Urine WBC (Auto) 26-50 (0-5) /HPF Urine RBC (Auto) 0-2 (0-2) /HPF U Epithel Cells (Auto) RARE (FEW) /HPF Urine Bacteria (Auto) NONE (NEGATIVE) /HPF Urine RBC LARGE (0-5) Michel/ul Unidentified Crystals 2-5 (NEGATIVE) /HPF Ur Culture Indicated? YES Urine Glucose NEGATIVE (NEGATIVE) mg/dL Influenza Type A Ag NEGATIVE (NEGATIVE) Influenza Type B Ag NEGATIVE (NEGATIVE) RSV (PCR) NEGATIVE (Negative) SARS-CoV-2 (PCR) NEGATIVE (NEGATIVE) 06/22/22 06/22/22 06/22/22 Range/Units 23:10 23:10 23:10 WBC (4.0-10.5) x10^3/uL RBC (4.1-5.4) x10^6/uL Hgb (12.0-16.0) g/dL Hct (35-47) % MCV (78-100) fL MCH (26-32) pg MCHC (32-36) g/dL RDW (11.5-14.0) % Plt Count (150-450) x10^3/uL MPV (7.5-11.0) fL Gran % (36.0-66.0) % Immature Gran % (Auto) (0.00-0.4) % Nucleat RBC Rel Count (0.00-0.1) % Eos # (Auto) (0-0.5) x10^3/uL Immature Gran # (Auto) (0.00-0.03) x10^3u/L Absolute Lymphs (auto) (1.0-4.6) x10^3/uL Absolute Monos (auto) (0.0-1.3) x10^3/uL Absolute Nucleated RBC (0.00-0.01) x10^3u/L Lymphocytes % (24.0-44.0) % Monocytes % (0.0-12.0) % Eosinophils % (0.00-5.0) % Basophils % (0.0-0.4) % Absolute Granulocytes (1.4-6.9) x10^3/uL Basophils # (0-0.4) x10^3/uL PT 11.7 (9.4-12.5) SECONDS INR 1.11 (0.8-3.0) APTT 26.5 (25.1-36.5) SECONDS D-Dimer 3.06 H* (0.0-0.50) mg/L Sodium 133 L (137-145) mmol/L Potassium 3.0 L* (3.5-5.1) mmol/L Chloride 104 (98-107) mmol/L Carbon Dioxide 25 (22-30) mmol/L Anion Gap 6.5 (5-15) MEQ/L BUN 13 (7-17) mg/dL Creatinine 0.92 (0.52-1.04) mg/dL Estimated GFR > 60.0 ML/MIN Glucose 102 (74-106) mg/dL Lactic Acid (0.4-2.0) Calcium 7.6 L (8.4-10.2) mg/dL Total Bilirubin 1.10 (0.2-1.3) mg/dL AST 21 (14-36) U/L ALT 16 (0-35) U/L Alkaline Phosphatase 155 H (38-126) U/L Troponin I 0.018 (0.000-0.034) ng/mL NT-Pro-B Natriuret Pep 8200 H (0-900) pg/mL Serum Total Protein 6.0 L (6.3-8.2) g/dL Albumin 2.7 L (3.5-5.0) g/dL Urinalys Dipstick Clnc Urine Color (YELLOW) Urine Appearance (CLEAR) Urine pH (5-6) Ur Specific [place] (1.005-1.025) POC Urine Protein Conf (Negative) Urine Ketones (NEGATIVE) Urine Nitrite (NEGATIVE) Urine Bilirubin (NEGATIVE) Urine Urobilinogen (0-1) mg/dL Urine Leukocytes (NEGATIVE) Urine WBC (Auto) (0-5) /HPF Urine RBC (Auto) (0-2) /HPF U Epithel Cells (Auto) (FEW) /HPF Urine Bacteria (Auto) (NEGATIVE) /HPF Urine RBC (0-5) Michel/ul Unidentified Crystals (NEGATIVE) /HPF Ur Culture Indicated? Urine Glucose (NEGATIVE) mg/dL Influenza Type A Ag (NEGATIVE) Influenza Type B Ag (NEGATIVE) RSV (PCR) (Negative) SARS-CoV-2 (PCR) (NEGATIVE) 06/22/22 06/22/22 Range/Units 23:00 23:00 WBC 20.5 H (4.0-10.5) x10^3/uL RBC 4.08 L (4.1-5.4) x10^6/uL Hgb 12.7 (12.0-16.0) g/dL Hct 39.1 (35-47) % MCV 95.8 (78-100) fL MCH 31.1 (26-32) pg MCHC 32.5 (32-36) g/dL RDW 14.6 H (11.5-14.0) % Plt Count 155 (150-450) x10^3/uL MPV 10.0 (7.5-11.0) fL Gran % 86.3 H (36.0-66.0) % Immature Gran % (Auto) 1.9 H (0.00-0.4) % Nucleat RBC Rel Count 0.0 (0.00-0.1) % Eos # (Auto) 0.02 (0-0.5) x10^3/uL Immature Gran # (Auto) 0.39 H (0.00-0.03) x10^3u/L Absolute Lymphs (auto) 1.47 (1.0-4.6) x10^3/uL Absolute Monos (auto) 0.87 (0.0-1.3) x10^3/uL Absolute Nucleated RBC 0.00 (0.00-0.01) x10^3u/L Lymphocytes % 7.2 L (24.0-44.0) % Monocytes % 4.2 (0.0-12.0) % Eosinophils % 0.1 (0.00-5.0) % Basophils % 0.3 (0.0-0.4) % Absolute Granulocytes 17.71 H (1.4-6.9) x10^3/uL Basophils # 0.06 (0-0.4) x10^3/uL PT (9.4-12.5) SECONDS INR (0.8-3.0) APTT (25.1-36.5) SECONDS D-Dimer (0.0-0.50) mg/L Sodium (137-145) mmol/L Potassium (3.5-5.1) mmol/L Chloride (98-107) mmol/L Carbon Dioxide (22-30) mmol/L Anion Gap (5-15) MEQ/L BUN (7-17) mg/dL Creatinine (0.52-1.04) mg/dL Estimated GFR ML/MIN Glucose (74-106) mg/dL Lactic Acid 1.5 (0.4-2.0) Calcium (8.4-10.2) mg/dL Total Bilirubin (0.2-1.3) mg/dL AST (14-36) U/L ALT (0-35) U/L Alkaline Phosphatase (38-126) U/L Troponin I (0.000-0.034) ng/mL NT-Pro-B Natriuret Pep (0-900) pg/mL Serum Total Protein (6.3-8.2) g/dL Albumin (3.5-5.0) g/dL Urinalys Dipstick Clnc Urine Color (YELLOW) Urine Appearance (CLEAR) Urine pH (5-6) Ur Specific [place] (1.005-1.025) POC Urine Protein Conf (Negative) Urine Ketones (NEGATIVE) Urine Nitrite (NEGATIVE) Urine Bilirubin (NEGATIVE) Urine Urobilinogen (0-1) mg/dL Urine Leukocytes (NEGATIVE) Urine WBC (Auto) (0-5) /HPF Urine RBC (Auto) (0-2) /HPF U Epithel Cells (Auto) (FEW) /HPF Urine Bacteria (Auto) (NEGATIVE) /HPF Urine RBC (0-5) Michel/ul Unidentified Crystals (NEGATIVE) /HPF Ur Culture Indicated? Urine Glucose (NEGATIVE) mg/dL Influenza Type A Ag (NEGATIVE) Influenza Type B Ag (NEGATIVE) RSV (PCR) (Negative) SARS-CoV-2 (PCR) (NEGATIVE) - Progress Progress: improved Progress Note: 06/23/22 01:54 Blood Cultures x2 1gm IV Rocephin 40mg IV Lasix 06/23/22 02:[address] Foster 06/23/22 07:23 B LE venous doppler neg per shakeel Discussed with : Lorne Will see patient in: hospital (observation) Counseled pt/family regarding: lab results, diagnosis, need for follow-up, rad results - Departure Departure Disposition: Observation Clinical Impression: UTI (urinary tract infection), CHF (congestive heart failure), Hypokalemia Condition: Stable Critical Care Time: No
[2022-06-22 23:40] LABS: INR 1.11 (0.8-3.0); PROTIME 11.7 SECONDS (9.4-12.5); PTT 26.5 SECONDS (25.1-36.5)
[2022-06-22 23:43] LABS: Appearance CLEAR (CLEAR); Bilirubin NEGATIVE (NEGATIVE); Dipstick done @ ? MAIN LAB; Glucose NEGATIVE (NEGATIVE); Ketones NEGATIVE (NEGATIVE); Nitrite NEGATIVE (NEGATIVE); Protein,Urine Dip TRACE (Negative); RBC LARGE Ery/ul (0-5); Urobilinogen 0.2 mg/dL (0-1)
[2022-06-22 23:46] LABS: Epithelial Cells RARE /HPF (FEW); RBC 0-2 /HPF (0-2); WBC 26-50 /HPF (0-5)
[2022-06-22 23:48] LABS: Urine Cultured Indicated? YES
[2022-06-22 23:51] LABS: ALBUMIN 2.7 g/dL (3.5-5.0); ALKALINE PHOSPHATASE 155 U/L (38-126); ANION GAP 6.5 MEQ/L (5-15); BLOOD UREA NITROGEN 13 mg/dL (7-17); CHLORIDE 104 mmol/L (98-107); Calcium 7.6 mg/dL (8.4-10.2); Carbon Dioxide 25 mmol/L (22-30); Creatinine 1 0.92 mg/dL (0.52-1.04); D-DIMER QUANTITATIVE 3.06 mg/L (0.0-0.50); EST GLOMERULAR FILTRATION RATE > 60.0 ML/MIN; Glucose 102 mg/dL (74-106); NT PRO BNP 8200 pg/mL (0-900); SGOT/AST 21 U/L (14-36); SGPT/ALT 16 U/L (0-35); SODIUM 133 mmol/L (137-145)
[2022-06-23] MEDS ORDERED: Klor Con PO ONE ×2 (00:24→00:27)
[2022-06-23] MEDS ORDERED: Lasix 40 MG/4 ML IV ONE (01:45)
[2022-06-23] MEDS ORDERED: ROCEPHIN 1 Gm-D5w 50 ml Bag** 1 G/50 ML IVPB IV STA (01:47)
[2022-06-23] MEDS ORDERED: Lasix 40 MG/4 ML ONE (02:11)
[2022-06-23] MEDS ORDERED: ROCEPHIN 1 Gm-D5w 50 ml Bag** 1 G/50 ML IVPB IV ONE (02:11)
[2022-06-23 03:13] LABS: INFLUENZA A NEGATIVE (NEGATIVE); INFLUENZA B NEGATIVE (NEGATIVE); RESPIRATORY SYNCTIAL VIRUS NEGATIVE (Negative); SARS-CoV-2 Xpert Express NEGATIVE (NEGATIVE)
[2022-06-23 06:09] LABS: Hematocrit 39.6 % (35-47); Mean Cell Volume 93.6 fL (78-100); Mean Corpuscular Hemoglobin 30.7 pg (26-32); Mean Corpuscular Hgb Concent. 32.8 g/dL (32-36); Mean Platelet Volume 10.6 fL (7.5-11.0); Platelet Count 179 x10^3/uL (150-450); Red Blood Count 4.23 x10^6/uL (4.1-5.4); Red Cell Distribution Width 14.6 % (11.5-14.0); White Blood Count 21.1 x10^3/uL (4.0-10.5)
--- NOTE | 2022-06-23 06:30 | XRAY ---
Indication: Abdomen pain and constipation. Multiple contiguous axial images obtained through the abdomen and pelvis without contrast. Comparison: June 18, 2022 Lung bases demonstrates grossly stable right lower lobe consolidating airspace disease with tiny effusion and mild left base subsegmental atelectasis/scarring. Heart not enlarged. Noncontrasted stomach and bowel loops remain nonobstructed again with sigmoid diverticulosis without diverticulitis. No free fluid/air. New right double-J ureteral stent catheter with grossly stable right renal edema/perinephric stranding. No hydronephrosis or hydroureter. Stable small uterine calcified fibroids. Remaining liver, gallbladder, pancreas, spleen, adrenal glands, left kidney, left ureter, bladder, and uterus are unremarkable for noncontrast exam. Again moderate scattered aortoiliac calcifications without AAA. Impression: 1. New right double-J ureteral stent catheter with grossly stable renal edema/perinephric stranding consistent with recent obstructive uropathy. Pyelonephritis not completely excluded in the right clinical setting. 2. Grossly stable right lower lobe consolidating airspace disease, small uterine calcified fibroids, sigmoid diverticulosis, and arteriosclerotic disease. Comment: Preliminary interpretation made by [facility]. No critical discrepancy.
--- NOTE | 2022-06-23 06:32 | XRAY ---
Indication: Lower extremity edema. Comparison: June 17, 2022 Portable apical lordotic chest demonstrates minimally improving left midlung and right base subsegmental atelectasis/scarring. Remaining heart and lungs unremarkable again with incidental tiny calcified granulomas. No new/acute abnormalities.
--- NOTE | 2022-06-23 06:34 | XRAY ---
Indication: Bilateral lower extremity edema. Elevated d-dimer. 2-dimensional sonogram and color Doppler imaging of the major venous vessels of the left and right leg performed. Comparison: None No thrombus seen in the examined deep venous vessels of the left and right leg including greater saphenous vein. Veins demonstrate normal compressibility. Venous waveforms are normal with and without augmentation. Impression: Left and right legs negative for DVT. Comment: Preliminary report was given.
[2022-06-23 07:06] LABS: ANION GAP 9.7 MEQ/L (5-15); BLOOD UREA NITROGEN 12 mg/dL (7-17); CHLORIDE 102 mmol/L (98-107); Calcium 7.7 mg/dL (8.4-10.2); Carbon Dioxide 27 mmol/L (22-30); Creatinine 1 0.94 mg/dL (0.52-1.04); EST GLOMERULAR FILTRATION RATE > 60.0 ML/MIN; Glucose 102 mg/dL (74-106); Potassium 3.4 mmol/L (3.5-5.1); SODIUM 135 mmol/L (137-145)
[2022-06-23] MEDS: Klor Con PO SCH ×3 (10:27→22:08)
[2022-06-23] MEDS: Lasix 40 MG/4 ML IV SCH ×2 (10:27→16:53)
[2022-06-23] MEDS ORDERED: DELTASONE 20 MG PO SCH (12:00)
[2022-06-23] MEDS: ZOFRAN ODT 4 MG PO SCH ×2 (12:32→16:53)
[2022-06-23] MEDS ORDERED: TORAdol 30 mg Injection IV PRN (15:59)
[2022-06-23] MEDS ORDERED: NORCO 5/325 MG PO PRN (16:00)
[2022-06-23] MEDS ORDERED: solu-MEDROL ONE ×2 (16:42→21:02)
[2022-06-23] MEDS ORDERED: Sterile H2O 10 ml IJ ONE ×2 (16:43→21:02)
[2022-06-23] MEDS: solu-MEDROL 40 MG, Sterile H2O 10 ml 1 ML IV SCH ×2 (16:53)
--- NOTE | 2022-06-23 17:14 | PCM.HP ---
History of Present Illness - Chief Complaint Chief Complaint: LUIZA, UTI, HYPOKALEMIA History of Present Illness: is a 56 year old female with no local PCP with PMHx Hepatitis C and chronic back pain who was admitted through ER with abd pain. She was found to have UTI, CHF, and hypokalemia. Pt had been discharged from [facility] on Saturday (2 d [employer]) after having kidney stone removed and stent placed. Since she got home, her stomach was aching - described lower abd pain throughout that is intermittent, sharp, like she needs to have a BM. 8/10. no N/V/D. Last night she decided to come to ER due to increased LE edema (says she has never had LE edema before). This has now decreased some. In ER, WBC were found to be 20.5 - 21.1 this morning. Left shift (granulocytes 86%). Potassium 3.0 on admission (3.4 this mornign). eGFR > 60 today. Troponins neg x 3. UA with WBC 26-50, large RBC. CT scan showed stent in place; question of pyelonephritis in the right clinical setting. - Review of Systems Respiratory: Cough (new in past 24h, prod small amt sputum) Cardiac: Edema Abdominal/Gastrointestinal: Abdominal Pain Neurological: Dizziness (off balance a little, intermittently) All Other Systems: Reviewed and Negative Medications & Allergies Home Medications: Home Medication List Diclofenac Sodium 75 mg PO BID 06/17/22 [History Confirmed 06/22/22] Ondansetron [Ondansetron Odt ] 4 mg PO Q6H 06/17/22 [History Confirmed 06/22/22] Prednisone 20 mg [Deltasone 20 mg] 40 mg PO QAM 06/17/22 [History Confirmed 06/17/22] Allergies/Adverse Reactions: Allergies Allergy/AdvReac Type Severity Reaction Status Date / Time morphine Allergy Verified 06/22/22 22:11 - Past Medical History Past Medical History: Yes Neurological History: No Pertinent History ENT History: No Pertinent History Cardiac History: Hypertension Respiratory History: No Pertinent History Endocrine Medical History: Hypothyroidism Musculoskelatal History: Other GI Medical History: No Pertinent History, Hepatitis History: No Pertinent History Pyscho-Social History: No Pertinent History Reproductive Disorders: No Pertinent History Comment: hepatitis c - Past Surgical History Past Surgical History: Yes Neuro Surgical History: No Pertinent History Cardiac History: No Pertinent History Respiratory Surgery: No Pertinent History GI Surgical History: No Pertinent History Genitourinary Surgical Hx: No Pertinent History Musculskeletal Surgical Hx: Orthopedic Surgery Female Surgical History: Section Other Surgical History: left rotator cuff, R kidney stent - Social History Smoking Status: Current every day smoker How long have you smoked: 40 years Exposure to second hand smoke: No Alcohol: None Drug Use: marijuana Significant Family History: no pertinent family hx - Physical Exam Vital Signs: Vital Signs - 24 hr Temp Pulse Resp BP BP Pulse Ox 06/23/22 16:00 98.2 F 68 22 139/75 89 L 06/23/22 12:00 97.7 F 73 20 142/88 92 L 06/23/22 08:00 97.1 F 70 21 139/64 93 L 06/23/22 07:24 95 06/23/22 03:53 97.9 F 71 18 138/67 97 06/23/22 02:27 74 18 160/82 93 L 06/23/22 01:05 72 18 153/66 93 L 06/23/22 00:03 78 18 159/94 97 06/22/22 23:00 78 18 95 06/22/22 22:10 97.1 F 73 18 146/98 93 L General Appearance: no apparent distress, obese Neurologic Exam: alert, oriented x 3 Eye Exam: eyes nml inspection Ears, Nose, Throat Exam: moist mucous membranes Neck Exam: normal inspection, non-tender, No lymphadenopathy, No thyromegaly Respiratory Exam: normal breath sounds, lungs clear, wheezing (LLL), No crackles/rales, No rhonchi Cardiovascular Exam: regular rate/rhythm, normal heart sounds, No murmur Gastrointestinal/Abdomen Exam: soft, normal bowel sounds, tenderness (throughout), No distention, No mass, No guarding, No rebound Back Exam: normal inspection, CVA tenderness (bilat), No rash Extremity Exam: normal inspection, swelling (trace pretibial edema bilat) Skin Exam: normal color, warm, dry, No rash Results - Labs Lab/Micro Results: Lab Results-Last 24 Hours 06/22/22 06/22/22 06/22/22 Range/Units 23:00 23:00 23:10 WBC 20.5 H (4.0-10.5) x10^3/uL RBC 4.08 L (4.1-5.4) x10^6/uL Hgb 12.7 (12.0-16.0) g/dL Hct 39.1 (35-47) % MCV 95.8 (78-100) fL MCH 31.1 (26-32) pg MCHC 32.5 (32-36) g/dL RDW 14.6 H (11.5-14.0) % Plt Count 155 (150-450) x10^3/uL MPV 10.0 (7.5-11.0) fL Gran % 86.3 H (36.0-66.0) % Immature Gran % (Auto) 1.9 H (0.00-0.4) % Nucleat RBC Rel Count 0.0 (0.00-0.1) % Eos # (Auto) 0.02 (0-0.5) x10^3/uL Immature Gran # (Auto) 0.39 H (0.00-0.03) x10^3u/L Absolute Lymphs (auto) 1.47 (1.0-4.6) x10^3/uL Absolute Monos (auto) 0.87 (0.0-1.3) x10^3/uL Absolute Nucleated RBC 0.00 (0.00-0.01) x10^3u/L Lymphocytes % 7.2 L (24.0-44.0) % Monocytes % 4.2 (0.0-12.0) % Eosinophils % 0.1 (0.00-5.0) % Basophils % 0.3 (0.0-0.4) % Absolute Granulocytes 17.71 H (1.4-6.9) x10^3/uL Basophils # 0.06 (0-0.4) x10^3/uL PT (9.4-12.5) SECONDS INR (0.8-3.0) APTT (25.1-36.5) SECONDS D-Dimer (0.0-0.50) mg/L Sodium 133 L (137-145) mmol/L Potassium 3.0 L* (3.5-5.1) mmol/L Chloride 104 (98-107) mmol/L Carbon Dioxide 25 (22-30) mmol/L Anion Gap 6.5 (5-15) MEQ/L BUN 13 (7-17) mg/dL Creatinine 0.92 (0.52-1.04) mg/dL Estimated GFR > 60.0 ML/MIN Glucose 102 (74-106) mg/dL Lactic Acid 1.5 (0.4-2.0) Calcium 7.6 L (8.4-10.2) mg/dL Total Bilirubin 1.10 (0.2-1.3) mg/dL AST 21 (14-36) U/L ALT 16 (0-35) U/L Alkaline Phosphatase 155 H (38-126) U/L Troponin I (0.000-0.034) ng/mL NT-Pro-B Natriuret Pep 8200 H (0-900) pg/mL Serum Total Protein 6.0 L (6.3-8.2) g/dL Albumin 2.7 L (3.5-5.0) g/dL Urinalys Dipstick Clnc Urine Color (YELLOW) Urine Appearance (CLEAR) Urine pH (5-6) Ur Specific [place] (1.005-1.025) POC Urine Protein Conf (Negative) Urine Ketones (NEGATIVE) Urine Nitrite (NEGATIVE) Urine Bilirubin (NEGATIVE) Urine Urobilinogen (0-1) mg/dL Urine Leukocytes (NEGATIVE) Urine WBC (Auto) (0-5) /HPF Urine RBC (Auto) (0-2) /HPF U Epithel Cells (Auto) (FEW) /HPF Urine Bacteria (Auto) (NEGATIVE) /HPF Urine RBC (0-5) Michel/ul Unidentified Crystals (NEGATIVE) /HPF Ur Culture Indicated? Urine Glucose (NEGATIVE) mg/dL Influenza Type A Ag (NEGATIVE) Influenza Type B Ag (NEGATIVE) RSV (PCR) (Negative) SARS-CoV-2 (PCR) (NEGATIVE) 06/22/22 06/22/22 06/22/22 Range/Units 23:10 23:10 23:12 WBC (4.0-10.5) x10^3/uL RBC (4.1-5.4) x10^6/uL Hgb (12.0-16.0) g/dL Hct (35-47) % MCV (78-100) fL MCH (26-32) pg MCHC (32-36) g/dL RDW (11.5-14.0) % Plt Count (150-450) x10^3/uL MPV (7.5-11.0) fL Gran % (36.0-66.0) % Immature Gran % (Auto) (0.00-0.4) % Nucleat RBC Rel Count (0.00-0.1) % Eos # (Auto) (0-0.5) x10^3/uL Immature Gran # (Auto) (0.00-0.03) x10^3u/L Absolute Lymphs (auto) (1.0-4.6) x10^3/uL Absolute Monos (auto) (0.0-1.3) x10^3/uL Absolute Nucleated RBC (0.00-0.01) x10^3u/L Lymphocytes % (24.0-44.0) % Monocytes % (0.0-12.0) % Eosinophils % (0.00-5.0) % Basophils % (0.0-0.4) % Absolute Granulocytes (1.4-6.9) x10^3/uL Basophils # (0-0.4) x10^3/uL PT 11.7 (9.4-12.5) SECONDS INR 1.11 (0.8-3.0) APTT 26.5 (25.1-36.5) SECONDS D-Dimer 3.06 H* (0.0-0.50) mg/L Sodium (137-145) mmol/L Potassium (3.5-5.1) mmol/L Chloride (98-107) mmol/L Carbon Dioxide (22-30) mmol/L Anion Gap (5-15) MEQ/L BUN (7-17) mg/dL Creatinine (0.52-1.04) mg/dL Estimated GFR ML/MIN Glucose (74-106) mg/dL Lactic Acid (0.4-2.0) Calcium (8.4-10.2) mg/dL Total Bilirubin (0.2-1.3) mg/dL AST (14-36) U/L ALT (0-35) U/L Alkaline Phosphatase (38-126) U/L Troponin I 0.018 (0.000-0.034) ng/mL NT-Pro-B Natriuret Pep (0-900) pg/mL Serum Total Protein (6.3-8.2) g/dL Albumin (3.5-5.0) g/dL Urinalys Dipstick Clnc MAIN LAB Urine Color YELLOW (YELLOW) Urine Appearance CLEAR (CLEAR) Urine pH 6.0 (5-6) Ur Specific [place] 1.010 (1.005-1.025) POC Urine Protein Conf TRACE (Negative) Urine Ketones NEGATIVE (NEGATIVE) Urine Nitrite NEGATIVE (NEGATIVE) Urine Bilirubin NEGATIVE (NEGATIVE) Urine Urobilinogen 0.2 (0-1) mg/dL Urine Leukocytes SMALL (NEGATIVE) Urine WBC (Auto) 26-50 (0-5) /HPF Urine RBC (Auto) 0-2 (0-2) /HPF U Epithel Cells (Auto) RARE (FEW) /HPF Urine Bacteria (Auto) NONE (NEGATIVE) /HPF Urine RBC LARGE (0-5) Michel/ul Unidentified Crystals 2-5 (NEGATIVE) /HPF Ur Culture Indicated? YES Urine Glucose NEGATIVE (NEGATIVE) mg/dL Influenza Type A Ag (NEGATIVE) Influenza Type B Ag (NEGATIVE) RSV (PCR) (Negative) SARS-CoV-2 (PCR) (NEGATIVE) 06/23/22 06/23/22 06/23/22 Range/Units 02:07 02:34 05:20 WBC (4.0-10.5) x10^3/uL RBC (4.1-5.4) x10^6/uL Hgb (12.0-16.0) g/dL Hct (35-47) % MCV (78-100) fL MCH (26-32) pg MCHC (32-36) g/dL RDW (11.5-14.0) % Plt Count (150-450) x10^3/uL MPV (7.5-11.0) fL Gran % (36.0-66.0) % Immature Gran % (Auto) (0.00-0.4) % Nucleat RBC Rel Count (0.00-0.1) % Eos # (Auto) (0-0.5) x10^3/uL Immature Gran # (Auto) (0.00-0.03) x10^3u/L Absolute Lymphs (auto) (1.0-4.6) x10^3/uL Absolute Monos (auto) (0.0-1.3) x10^3/uL Absolute Nucleated RBC (0.00-0.01) x10^3u/L Lymphocytes % (24.0-44.0) % Monocytes % (0.0-12.0) % Eosinophils % (0.00-5.0) % Basophils % (0.0-0.4) % Absolute Granulocytes (1.4-6.9) x10^3/uL Basophils # (0-0.4) x10^3/uL PT (9.4-12.5) SECONDS INR (0.8-3.0) APTT (25.1-36.5) SECONDS D-Dimer (0.0-0.50) mg/L Sodium (137-145) mmol/L Potassium (3.5-5.1) mmol/L Chloride (98-107) mmol/L Carbon Dioxide (22-30) mmol/L Anion Gap (5-15) MEQ/L BUN (7-17) mg/dL Creatinine (0.52-1.04) mg/dL Estimated GFR ML/MIN Glucose (74-106) mg/dL Lactic Acid (0.4-2.0) Calcium (8.4-10.2) mg/dL Total Bilirubin (0.2-1.3) mg/dL AST (14-36) U/L ALT (0-35) U/L Alkaline Phosphatase (38-126) U/L Troponin I < 0.012 < 0.012 (0.000-0.034) ng/mL NT-Pro-B Natriuret Pep (0-900) pg/mL Serum Total Protein (6.3-8.2) g/dL Albumin (3.5-5.0) g/dL Urinalys Dipstick Clnc Urine Color (YELLOW) Urine Appearance (CLEAR) Urine pH (5-6) Ur Specific [place] (1.005-1.025) POC Urine Protein Conf (Negative) Urine Ketones (NEGATIVE) Urine Nitrite (NEGATIVE) Urine Bilirubin (NEGATIVE) Urine Urobilinogen (0-1) mg/dL Urine Leukocytes (NEGATIVE) Urine WBC (Auto) (0-5) /HPF Urine RBC (Auto) (0-2) /HPF U Epithel Cells (Auto) (FEW) /HPF Urine Bacteria (Auto) (NEGATIVE) /HPF Urine RBC (0-5) Michel/ul Unidentified Crystals (NEGATIVE) /HPF Ur Culture Indicated? Urine Glucose (NEGATIVE) mg/dL Influenza Type A Ag NEGATIVE (NEGATIVE) Influenza Type B Ag NEGATIVE (NEGATIVE) RSV (PCR) NEGATIVE (Negative) SARS-CoV-2 (PCR) NEGATIVE (NEGATIVE) 06/23/22 06/23/22 Range/Units 05:20 05:20 WBC 21.1 H (4.0-10.5) x10^3/uL RBC 4.23 (4.1-5.4) x10^6/uL Hgb 13.0 (12.0-16.0) g/dL Hct 39.6 (35-47) % MCV 93.6 (78-100) fL MCH 30.7 (26-32) pg MCHC 32.8 (32-36) g/dL RDW 14.6 H (11.5-14.0) % Plt Count 179 (150-450) x10^3/uL MPV 10.6 (7.5-11.0) fL Gran % (36.0-66.0) % Immature Gran % (Auto) (0.00-0.4) % Nucleat RBC Rel Count (0.00-0.1) % Eos # (Auto) (0-0.5) x10^3/uL Immature Gran # (Auto) (0.00-0.03) x10^3u/L Absolute Lymphs (auto) (1.0-4.6) x10^3/uL Absolute Monos (auto) (0.0-1.3) x10^3/uL Absolute Nucleated RBC (0.00-0.01) x10^3u/L Lymphocytes % (24.0-44.0) % Monocytes % (0.0-12.0) % Eosinophils % (0.00-5.0) % Basophils % (0.0-0.4) % Absolute Granulocytes (1.4-6.9) x10^3/uL Basophils # (0-0.4) x10^3/uL PT (9.4-12.5) SECONDS INR (0.8-3.0) APTT (25.1-36.5) SECONDS D-Dimer (0.0-0.50) mg/L Sodium 135 L (137-145) mmol/L Potassium 3.4 L (3.5-5.1) mmol/L Chloride 102 (98-107) mmol/L Carbon Dioxide 27 (22-30) mmol/L Anion Gap 9.7 (5-15) MEQ/L BUN 12 (7-17) mg/dL Creatinine 0.94 (0.52-1.04) mg/dL Estimated GFR > 60.0 ML/MIN Glucose 102 (74-106) mg/dL Lactic Acid (0.4-2.0) Calcium 7.7 L (8.4-10.2) mg/dL Total Bilirubin (0.2-1.3) mg/dL AST (14-36) U/L ALT (0-35) U/L Alkaline Phosphatase (38-126) U/L Troponin I (0.000-0.034) ng/mL NT-Pro-B Natriuret Pep (0-900) pg/mL Serum Total Protein (6.3-8.2) g/dL Albumin (3.5-5.0) g/dL Urinalys Dipstick Clnc Urine Color (YELLOW) Urine Appearance (CLEAR) Urine pH (5-6) Ur Specific [place] (1.005-1.025) POC Urine Protein Conf (Negative) Urine Ketones (NEGATIVE) Urine Nitrite (NEGATIVE) Urine Bilirubin (NEGATIVE) Urine Urobilinogen (0-1) mg/dL Urine Leukocytes (NEGATIVE) Urine WBC (Auto) (0-5) /HPF Urine RBC (Auto) (0-2) /HPF U Epithel Cells (Auto) (FEW) /HPF Urine Bacteria (Auto) (NEGATIVE) /HPF Urine RBC (0-5) Michel/ul Unidentified Crystals (NEGATIVE) /HPF Ur Culture Indicated? Urine Glucose (NEGATIVE) mg/dL Influenza Type A Ag (NEGATIVE) Influenza Type B Ag (NEGATIVE) RSV (PCR) (Negative) SARS-CoV-2 (PCR) (NEGATIVE) - Radiology Impressions Radiology Exams & Impressions: Radiology Procedures Category Date Time Status ABDOMEN AND PELVIS W/0 CONTRAS [CT] Stat Exams 06/22/22 22:40 Completed CHEST 1 VIEW (PORTABLE) Stat Exams 06/22/22 22:39 Completed VENOUS BILATERAL EXTREMITY [US] Routine Exams 06/23/22 01:16 Completed - Other Procedures and Tests Respiratory Therapy 06/23/22 01:57 Oxygen NASAL CANNULA 2 lpm Assessment/Plan (1) Pyelonephritis Current Visit: No Status: Suspected Assessment & Plan: With WBC 21,100 today. Day #2 rocephin; will change to meropenem and vancomycin due to pt with recent instrumentation and possible pyelonephritis on CT scan. Code(s): N12 - TUBULO-INTERSTITIAL NEPHRITIS, NOT SPCF ACUTE OR CHRONIC (2) CHF (congestive heart failure) Current Visit: Yes Status: Acute Qualifiers: Heart failure type: unspecified Heart failure chronicity: acute Qualified Code(s): I50.9 - Heart failure, unspecified Assessment & Plan: New for pt; will want echo on Saturday. Question whether she may have had large amount of fluid during her recent hospital procedure. Code(s): I50.9 - HEART FAILURE, UNSPECIFIED (3) Hypokalemia Current Visit: Yes Status: Acute Code(s): E87.6 - HYPOKALEMIA (4) Ureteral stent present Current Visit: Yes Status: Acute Code(s): Z96.0 - PRESENCE OF UROGENITAL IMPLANTS (5) Hepatitis C Current Visit: Yes Status: Acute Qualifiers: Viral hepatitis chronicity: chronic Hepatic coma status: without hepatic coma Qualified Code(s): B18.2 - Chronic viral hepatitis C
[2022-06-23] MEDS ORDERED: PHARMACY DOSING REQUIRED: VANCOMYCIN IV STA (17:16)
[2022-06-23] MEDS ORDERED: NORCO 5/325 MG ONE (18:16)
[2022-06-23] MEDS ORDERED: VANCOMYCIN 1.25 GM/250 ML BAG 1.25 GM/250 ML PIGGYBACK IV ONE (18:17)
[2022-06-23] MEDS ORDERED: VANCOMYCIN 1.25 GM/250 ML BAG 1.25 GM/250 ML PIGGYBACK IV SCH (19:00)
[2022-06-23] MEDS ORDERED: Sodium Chloride 100ML MINI-BAG PLUS 100 ML IV ONE (21:02)
[2022-06-23] MEDS ORDERED: Merrem IV ONE (21:02)
[2022-06-23] MEDS ORDERED: ROCEPHIN 1 Gm-D5w 50 ml Bag** 1 G/50 ML IVPB IV SCH (22:00)
[2022-06-23] MEDS ORDERED: Merrem 1 GM in Sodium Chloride 100ML MINI-BAG PLUS 100 ML IV SCH (22:00)
[2022-06-24] MEDS: solu-MEDROL 40 MG, Sterile H2O 10 ml 1 ML IV SCH ×2 (00:04)
[2022-06-24] MEDS ORDERED: TORAdol 30 mg Injection ONE (00:11)
[2022-06-24] MEDS: ZOFRAN ODT 4 MG PO SCH (00:14)
[2022-06-24] MEDS ORDERED: Nitrostat 0.4 MG Tablet SL ONE (01:37)
[2022-06-24] MEDS: Nitrostat 0.4 MG Tablet SL PRN ×2 (01:38→01:56)
[2022-06-24] MEDS ORDERED: BABY ASPIRIN 81 MG CHEW PO ONE ×2 (01:52→02:00)
[2022-06-24 02:00] VITALS: PULSE 70
[2022-06-24 02:22] VITALS: BP 177/93; O2SAT 92
--- NOTE | 2022-06-24 09:13 | XRAY ---
Indication: Chest pain. Comparison: June 22, 2022 Portable apical lordotic chest unchanged again demonstrating minimal left midlung and right base subsegmental atelectasis/scarring. Remaining heart and lungs unremarkable again with incidental tiny calcified granulomas. No new/acute findings.
== END 2022-06-24 02:07 | disposition short-term general hospital (02) ==
LOC: ED 21:04 → MED SURG 06-23 03:39
PROVIDERS: ADMIT Family Medicine; ATTEND Family Medicine
DX: N12 Tubulo-interstitial nephritis, not specified as acute or chronic (principal); I11.0 Hypertensive heart disease with heart failure; I50.9 Heart failure, unspecified; E87.6 Hypokalemia; Z96.0 Presence of urogenital implants; B18.2 Chronic viral hepatitis C; Z79.899 Other long term (current) drug therapy; Z20.828 Contact with and (suspected) exposure to other viral communicable diseases; Z72.0 Tobacco use
CPT/HCPCS: 0241U; 36000; 36415; 71045; 74176; 80048; 80053; 81015; 83605; 83880; 84484; 85025; 85027; 85379; 85610; 85730; 87040; 87086; 93005; 93970; 96365; 96374; 99285; 93268; J0696; J1885; J1940; J2920; Q0162; A9270-GY; G0378; J3370

== ENCOUNTER 2022-09-26 11:48 | Day surgery (SDC) | payer OTHER ==
[2022-09-26] MEDS ORDERED: BUPIVACAINE 0.5% VIAL IJ ONE (11:49)
[2022-09-26] MEDS ORDERED: Depo-Medrol 40 MG/ML IM ONE (11:49)
[2022-09-26] MEDS ORDERED: DIPRIVAN 200 MG/20 ML IV ONE (14:09)
[2022-09-26] MEDS ORDERED: Lactated Ringers 1,000 ML IV ONE (14:58)
--- NOTE | 2022-09-26 16:38 | XRAY ---
Indication: Bilateral SI joint injection. Intraoperative fluoroscopy provided for 22 seconds. 4 digital spot images submitted for interpretation demonstrates posterior needle tip projecting over the left and right SI joint. Correlate with intraoperative findings/report.
--- NOTE | 2022-09-26 17:22 | XRAY ---
22 seconds of fluoroscopy was used in surgery for bilateral SI joint injections.
== END 2022-09-26 14:30 | disposition home or self-care (01) ==
LOC: SDC-PAIN 11:48
PROVIDERS: ATTEND Psychiatry & Neurology Pain Medicine
DX: M46.1 Sacroiliitis, not elsewhere classified (principal); Z79.899 Other long term (current) drug therapy
CPT/HCPCS: 27096; 72202; 77002; G0260; J1030; J2704

== ENCOUNTER 2022-11-14 15:04 | Day surgery (SDC) | payer OTHER ==
[2022-11-14] MEDS ORDERED: BUPIVACAINE 0.5% VIAL IJ ONE (15:05)
[2022-11-14] MEDS ORDERED: Depo-Medrol 40 MG/ML IM ONE (15:05)
[2022-11-14] MEDS ORDERED: DIPRIVAN 200 MG/20 ML IV ONE (16:58)
[2022-11-14] MEDS ORDERED: Lactated Ringers 1,000 ML IV ONE (17:31)
--- NOTE | 2022-11-14 20:00 | XRAY ---
Indication: Right shoulder and subacromial bursa injection. Intraoperative fluoroscopy provided for 10 seconds. 2 digital spot image submitted for interpretation demonstrates needle tip projecting over the right glenohumeral joint superiorly. Second needle tip subacromial. Small amount of contrast injected for both needle tip placement. Correlate with intraoperative findings/report.
--- NOTE | 2022-11-14 20:00 | XRAY ---
Indication: Left shoulder and subacromial bursa injection. Intraoperative fluoroscopy provided for 15 seconds. 2 digital spot image submitted for interpretation demonstrates needle tip projecting over the left glenohumeral joint superiorly. Second needle tip subacromial. Small amount of contrast injected for both needle tip placement. Correlate with intraoperative findings/report.
--- NOTE | 2022-11-15 08:46 | XRAY ---
15 seconds of fluoroscopy was used in surgery for a left intra-articular and subacromial bursa shoulder injection.
--- NOTE | 2022-11-15 08:46 | XRAY ---
10 seconds of fluoroscopy was used in surgery for a right intra-articular and subacromial bursa shoulder injection.
== END 2022-11-14 17:40 | disposition home or self-care (01) ==
LOC: SDC-PAIN 15:04
PROVIDERS: ATTEND Psychiatry & Neurology Pain Medicine
DX: M19.012 Primary osteoarthritis, left shoulder (principal); M19.011 Primary osteoarthritis, right shoulder; M75.52 Bursitis of left shoulder; M75.51 Bursitis of right shoulder; Z79.899 Other long term (current) drug therapy
CPT/HCPCS: 20610; 73030; 77002; J1030; J2704; Q9966

== ENCOUNTER 2023-03-14 12:40 | Emergency (ER) | payer OTHER ==
[2023-03-14 13:19] LABS: Absolute Neutrophil Ct (ANC) 5.73 x10^3/uL (1.4-6.9); BASOPHIL % 0.5 % (0.0-0.4); Basophil (Absolute #) 0.04 x10^3/uL (0-0.4); Eosinophil % 1.5 % (0.00-5.0); Eosinophil (Absolute #) 0.12 x10^3/uL (0-0.5); Hematocrit 41.3 % (35-47); Hemoglobin 12.9 g/dL (12.0-16.0); IMMATURE GRAN # 0.05 x10^3u/L (0.00-0.03); IMMATURE GRAN % 0.6 % (0.00-0.4); Lymphocyte (Absolute #) 1.73 x10^3/uL (1.0-4.6); Lymphocytes % 21.2 % (24.0-44.0); Mean Cell Volume 103.3 fL (78-100); Mean Corpuscular Hemoglobin 32.3 pg (26-32); Mean Corpuscular Hgb Concent. 31.2 g/dL (32-36); Mean Platelet Volume 10.4 fL (7.5-11.0); Monocyte (Absolute #) 0.48 x10^3/uL (0.0-1.3); Monocytes % 5.9 % (0.0-12.0); Neutrophil % 70.3 % (36.0-66.0); Platelet Count 194 x10^3/uL (150-450); Red Cell Distribution Width 13.7 % (11.5-14.0); White Blood Count 8.2 x10^3/uL (4.0-10.5)
[2023-03-14 13:24] LABS: Appearance Clear (Clear); Bacteria Many /HPF (None Seen); Bilirubin Negative (Negative); Blood Negative (Negative); Epithelial Cells None Seen /HPF (None Seen); Glucose, Urine Negative (Negative); Hyaline Casts NONE SEEN /LPF (0-2); Ketones Negative (Negative); Leukocyte Esterase Moderate (Negative); Nitrite Positive (Negative); Protein,Urine Dip Negative (Negative); RBC 0-2 /HPF (0-5); Specific Gravity 1.015 (1.005-1.030); WBC 51-100 /HPF (0-5)
[2023-03-14 13:25] LABS: ADD URINE CULTURE? YES (NO)
--- NOTE | 2023-03-14 13:29 | ERPHSYRPT ---
- History of Present Illness Historian: patient Exam Limitations: no limitations Patient Subjective Stated Complaint: Pt states "I have really bad abdominal pain. It started this morning and it hurts." Triage Nursing Assessment: Pt presented alert and oriented X 3, skin pwd. pt ambulates with an upright steady gait, able to speak in clear full sentences pt in no apaprent respiratory distress. Physician History: 57 yo Wf w LLQ pain since 8:30AM today. Pain is described as cramping and 8/10 on scale. It is worse w movement. She denies N/V/D/ melena/hematochezia/dysuria/hematuria/fever. Pt has never had this pain before. She refuses pain meds at this time. Timing/Duration: other (8:30AM) Activities at Onset: rest Quality: cramping Abdominal Pain Onset Location: LLQ Pain Radiation: no radiation Severity of Pain-Max: severe Severity of Pain-Current: severe Modifying Factors: Improves With: nothing, movement Associated Symptoms: denies symptoms Previous symptoms: no prior history Allergies/Adverse Reactions: morphine Allergy (Verified 06/22/22 22:11) Home Medications: Allopurinol 100 mg [Zyloprim 100 mg] 100 mg PO DAILY 03/14/23 [History] Aspirin EC 81 mg [Ecotrin 81 mg] 81 mg PO DAILY 03/14/23 [History] Metoprolol Tartrate 25 mg [Lopressor 25MG Tab] 25 mg PO DAILY 03/14/23 [History] Smz/Tmp Ds Tablet [Bactrim Ds Tablet] 1 tab PO Q12H 03/14/23 [History] Ticagrelor [Brilinta] 90 mg PO DAILY 03/14/23 [History] Hx Tetanus, Diphtheria Vaccination/Date Given: No Hx Influenza Vaccination/Date Given: No Hx Pneumococcal Vaccination/Date Given: No Immunizations Up to Date: No Travel Risk - International Travel Have you traveled outside of the country in past 3 weeks: No - Coronavirus Screening Are you exhibiting any of the following symptoms?: No Close contact with a COVID-19 positive Pt in past 14-21 Days: No - Vaccine Status Have you recieved a Covid-19 vaccination: No Oyster Washer: Moderna - Vaccination Dates Date of 2cond Vaccination (if applicable): 2020 - Review of Systems Constitutional: No Symptoms Eyes: No Symptoms Ears, Nose, & Throat: No Symptoms Respiratory: No Symptoms Cardiac: No Symptoms Genitourinary Symptoms: No Symptoms Musculoskeletal: No Symptoms Skin: No Symptoms Neurological: No Symptoms Psychological: No Symptoms Endocrine: No Symptoms Hematologic/Lymphatic: No Symptoms Immunological/Allergic: No Symptoms - Past Medical History Pertinent Past Medical History: Yes Neurological History: No Pertinent History ENT History: No Pertinent History Cardiac History: Congestive Heart Failure, Hypertension Respiratory History: No Pertinent History Endocrine Medical History: Hypothyroidism Musculoskeletal History: Other GI Medical History: No Pertinent History, Hepatitis History: Renal Disease Psycho-Social History: No Pertinent History Female Reproductive Disorders: No Pertinent History Other Medical History: hepatitis c - Past Surgical History Past Surgical History: Yes Neuro Surgical History: No Pertinent History Cardiac: No Pertinent History Respiratory: No Pertinent History Gastrointestinal: No Pertinent History Genitourinary: No Pertinent History Musculoskeletal: Orthopedic Surgery Female Surgical History: Section Other Surgical History: left rotator cuff, R kidney stent. 2 cardiac stent - Social History Smoking Status: Former smoker How long have you smoked: 40 years Exposure to second hand smoke: No Drug Use: marijuana Patient Lives Alone: No Significant Family History: no pertinent family hx - Nursing Vital Signs Nursing Vital Signs: Initial Vital Signs Temperature 97.1 F 03/14/23 12:49 Pulse Rate 78 03/14/23 12:49 Respiratory Rate 20 03/14/23 12:49 Blood Pressure 201/103 03/14/23 12:49 O2 Sat by Pulse Oximetry 96 03/14/23 12:49 Pain Scale Pain Intensity 2 Hypertensive - Physical Exam General Appearance: no apparent distress Eye Exam: PERRL/EOMI, eyes nml inspection Ears, Nose, Throat Exam: normal ENT inspection, TMs normal, pharynx normal, moist mucous membranes Neck Exam: normal inspection, non-tender, supple, full range of motion, No meningismus, No mass, No Brudzinski, No Kernig's Respiratory Exam: normal breath sounds, lungs clear, airway intact Cardiovascular Exam: regular rate/rhythm, normal heart sounds, normal peripheral pulses, capillary refill <2 sec, No murmur Gastrointestinal/Abdomen Exam: soft, normal bowel sounds, tenderness (Moderate TTP LLQ) Back Exam: normal inspection, normal range of motion, No CVA tenderness, No vertebral tenderness Extremity Exam: normal inspection, normal range of motion Neurologic Exam: alert, oriented x 3, cooperative, 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, normal mood/affect, nml cerebellar function, nml station & gait, sensation nml Skin Exam: normal color, warm, dry Lymphatic Exam: No adenopathy SpO2 Interpretation: normal SpO2: 96 O2 Delivery: Room Air - Course Nursing assessment & vital signs reviewed: Yes - CT Exams Abdomen/Pelvis CT Interpretation: Discussed w/radiologist (R renal atrophy/uterine fibroids/diverticulosis) Ordered Tests: Active Orders 24 hr Category Date Time Status ABDOMEN AND PELVIS W/0 CONTRAS [CT] Stat Exams 03/14/23 13:32 Completed AMYLASE Stat Lab 03/14/23 13:00 Completed CBC W DIFF Stat Lab 03/14/23 13:00 Completed CMP Stat Lab 03/14/23 13:00 Completed CULTURE,URINE Stat Lab 03/14/23 13:09 Received LIPASE Stat Lab 03/14/23 13:00 Completed Lactic Acid Stat Lab 03/14/23 13:10 Completed UA W/RFX UR CULTURE Stat Lab 03/14/23 13:09 Completed Medication Summary Discontinued Medications Generic Name Dose Route Start Last Admin Trade Name Freq PRN Reason Stop Dose Admin Sodium Chloride 1,000 mls @ 999 mls/hr 03/14/23 14:16 03/14/23 14:20 Sodium Chloride 0.9% 1000 Ml IV 03/14/23 15:16 999 mls/hr .Q1H1M STA Administration Ceftriaxone Sodium/Dextrose 1 g in 50 mls @ 100 mls/hr 03/14/23 14:16 03/14/23 14:19 Rocephin 1 Gm-D5w 50 Ml Bag IV 03/14/23 14:45 100 mls/hr STAT STA 100 mls/hr Administration Sodium Chloride Confirm 03/14/23 14:18 Sodium Chloride 0.9% 1000 Ml Administered 03/14/23 14:19 Dose 1,000 mls @ ud .ROUTE .STK-MED ONE Ceftriaxone Sodium/Dextrose Confirm 03/14/23 14:18 Rocephin 1 Gm-D5w 50 Ml Bag Administered 03/14/23 14:19 Dose 1 g in 50 mls @ ud IV .STK-MED ONE Lab/Rad Data: Laboratory Result Diagrams 03/14/23 13:00 03/14/23 13:00 Laboratory Results 03/14/23 03/14/23 03/14/23 Range/Units 13:10 13:09 13:00 WBC (4.0-10.5) x10^3/uL RBC (4.1-5.4) x10^6/uL Hgb (12.0-16.0) g/dL Hct (35-47) % MCV (78-100) fL MCH (26-32) pg MCHC (32-36) g/dL RDW (11.5-14.0) % Plt Count (150-450) x10^3/uL MPV (7.5-11.0) fL Gran % (36.0-66.0) % Immature Gran % (Auto) (0.00-0.4) % Nucleat RBC Rel Count (0.00-0.1) % Eos # (Auto) (0-0.5) x10^3/uL Immature Gran # (Auto) (0.00-0.03) x10^3u/L Absolute Lymphs (auto) (1.0-4.6) x10^3/uL Absolute Monos (auto) (0.0-1.3) x10^3/uL Absolute Nucleated RBC (0.00-0.01) x10^3u/L Lymphocytes % (24.0-44.0) % Monocytes % (0.0-12.0) % Eosinophils % (0.00-5.0) % Basophils % (0.0-0.4) % Absolute Granulocytes (1.4-6.9) x10^3/uL Basophils # (0-0.4) x10^3/uL Sodium 143 (137-145) mmol/L Potassium 4.0 (3.5-5.1) mmol/L Chloride 107 (98-107) mmol/L Carbon Dioxide 26 (22-30) mmol/L Anion Gap 13.9 (5-15) MEQ/L BUN 20 H (7-17) mg/dL Creatinine 1.27 H (0.52-1.04) mg/dL Estimated GFR 45.9 ML/MIN Glucose 90 (74-106) mg/dL Lactic Acid 1.4 (0.4-2.0) Calcium 9.4 (8.4-10.2) mg/dL Total Bilirubin 0.70 (0.2-1.3) mg/dL AST 48 H (14-36) U/L ALT 39 H (0-35) U/L Alkaline Phosphatase 103 (38-126) U/L Serum Total Protein 7.7 (6.3-8.2) g/dL Albumin 3.9 (3.5-5.0) g/dL Amylase 97 (30-110) U/L Lipase 380 H (23-300) U/L Urine Color Yellow (Yellow) Urine Appearance Clear (Clear) Urine pH 6.0 (4.6-8.0) Ur Specific [place] 1.015 (1.005-1.030) Urine Protein Negative (Negative) Urine Glucose (UA) Negative (Negative) mg/dL Urine Ketones Negative (Negative) Urine Blood Negative (Negative) Urine Nitrite Positive A (Negative) Urine Bilirubin Negative (Negative) Urine Urobilinogen 1.0 A (0.2) mg/dL Ur Leukocyte Esterase Moderate A (Negative) U Hyaline Cast (Auto) NONE SEEN (0-2) /LPF Urine Microscopic RBC 0-2 (0-5) /HPF Urine Microscopic WBC 51-100 A (0-5) /HPF Ur Epithelial Cells None Seen (None Seen) /HPF Urine Bacteria Many A (None Seen) /HPF Urine Culture Reflexed YES (NO) 03/14/23 Range/Units 13:00 WBC 8.2 (4.0-10.5) x10^3/uL RBC 4.00 L (4.1-5.4) x10^6/uL Hgb 12.9 (12.0-16.0) g/dL Hct 41.3 (35-47) % MCV 103.3 H (78-100) fL MCH 32.3 H (26-32) pg MCHC 31.2 L (32-36) g/dL RDW 13.7 (11.5-14.0) % Plt Count 194 (150-450) x10^3/uL MPV 10.4 (7.5-11.0) fL Gran % 70.3 H (36.0-66.0) % Immature Gran % (Auto) 0.6 H (0.00-0.4) % Nucleat RBC Rel Count 0.0 (0.00-0.1) % Eos # (Auto) 0.12 (0-0.5) x10^3/uL Immature Gran # (Auto) 0.05 H (0.00-0.03) x10^3u/L Absolute Lymphs (auto) 1.73 (1.0-4.6) x10^3/uL Absolute Monos (auto) 0.48 (0.0-1.3) x10^3/uL Absolute Nucleated RBC 0.00 (0.00-0.01) x10^3u/L Lymphocytes % 21.2 L (24.0-44.0) % Monocytes % 5.9 (0.0-12.0) % Eosinophils % 1.5 (0.00-5.0) % Basophils % 0.5 (0.0-0.4) % Absolute Granulocytes 5.73 (1.4-6.9) x10^3/uL Basophils # 0.04 (0-0.4) x10^3/uL Sodium (137-145) mmol/L Potassium (3.5-5.1) mmol/L Chloride (98-107) mmol/L Carbon Dioxide (22-30) mmol/L Anion Gap (5-15) MEQ/L BUN (7-17) mg/dL Creatinine (0.52-1.04) mg/dL Estimated GFR ML/MIN Glucose (74-106) mg/dL Lactic Acid (0.4-2.0) Calcium (8.4-10.2) mg/dL Total Bilirubin (0.2-1.3) mg/dL AST (14-36) U/L ALT (0-35) U/L Alkaline Phosphatase (38-126) U/L Serum Total Protein (6.3-8.2) g/dL Albumin (3.5-5.0) g/dL Amylase (30-110) U/L Lipase (23-300) U/L Urine Color (Yellow) Urine Appearance (Clear) Urine pH (4.6-8.0) Ur Specific [place] (1.005-1.030) Urine Protein (Negative) Urine Glucose (UA) (Negative) mg/dL Urine Ketones (Negative) Urine Blood (Negative) Urine Nitrite (Negative) Urine Bilirubin (Negative) Urine Urobilinogen (0.2) mg/dL Ur Leukocyte Esterase (Negative) U Hyaline Cast (Auto) (0-2) /LPF Urine Microscopic RBC (0-5) /HPF Urine Microscopic WBC (0-5) /HPF Ur Epithelial Cells (None Seen) /HPF Urine Bacteria (None Seen) /HPF Urine Culture Reflexed (NO) - Progress Progress Note: 03/14/23 15:37 Nursing note and vital signs reviewed No food or housing insecurities noted Additional history per daughter 1L NS bolus 1gm IV Rocephin All lab results/CT results reviewed and shared w pt/daughter Pt refused pain meds during entire stay 03/14/23 15:40 BP decreasing during stay Counseled pt/family regarding: lab results, diagnosis, need for follow-up, rad r soni Medical Desision Making - Independent Historian Additional History obtained from: Child - External Record(s) Reviewed Records reviewed as a part of evaluation & management: Inpatient - Diagnostic Testing Diagnostic test were ordered, analyzed, and reviewed by me: Yes Radiological Interpretation: Reviewed by me - Risk of complications The pt has a mod risk of morbidity or mortality based on: Need for prescription drug management - Departure Departure Disposition: Home Clinical Impression: UTI (urinary tract infection) Condition: Stable Critical Care Time: No Referrals: DEBBI STRANGE DO [Primary Care Provider] - Follow up/PCP as directed Instructions: Urinary Tract Infection, Adult (DC), Severe Abdominal Pain, Adult (DC) Additional Instructions: Fluids Bactrim twice a day for 5 days Follow up with your family MD Return to ER for increasing pain or temperature greater than 100.5 Prescriptions: Smz/Tmp Ds Tablet [Bactrim Ds Tablet] 1 tab PO Q12H 5 Days #10 tablet
[2023-03-14 13:48] VITALS: PULSE 65
[2023-03-14 14:09] VITALS: BP 158/83
[2023-03-14] MEDS ORDERED: Sodium Chloride 0.9% 1000 ML 1,000 ML IV STA (14:16)
[2023-03-14] MEDS ORDERED: ROCEPHIN 1 Gm-D5w 50 ml Bag** 1 G/50 ML IVPB IV STA (14:16)
[2023-03-14] MEDS ORDERED: Sodium Chloride 0.9% 1000 ML 1,000 ML ONE (14:18)
[2023-03-14] MEDS ORDERED: ROCEPHIN 1 Gm-D5w 50 ml Bag** 1 G/50 ML IVPB IV ONE (14:18)
[2023-03-14 14:19] LABS: ALBUMIN 3.9 g/dL (3.5-5.0); ANION GAP 13.9 MEQ/L (5-15); BILIRUBIN,TOTAL 0.7 mg/dL (0.2-1.3); Calcium 9.4 mg/dL (8.4-10.2); Creatinine 1 1.27 mg/dL (0.52-1.04); EST GLOMERULAR FILTRATION RATE 45.9 ML/MIN; Total Protein 7.7 g/dL (6.3-8.2)
--- NOTE | 2023-03-14 14:31 | XRAY ---
Indication: Left lower quadrant pain. Multiple contiguous axial images obtained through the abdomen and pelvis without contrast. Comparison: June 22, 2022 Lung bases clear of infiltrate and effusion. Heart not enlarged. Noncontrasted stomach and bowel loops again nonobstructed with normal appendix and sigmoid diverticulosis. Right ureteral stent catheter has been removed with new right renal atrophy with pelvocaliectasis. Also new 4 mm nonobstructing left renal calculus. No free fluid/air. Stable small uterine calcified fibroids. Remaining liver, gallbladder, pancreas, spleen, adrenal glands, kidneys, ureters, bladder, and uterus are unremarkable for noncontrast exam. Stable moderate aortoiliac calcifications without AAA. Osseous structures intact again with mild degenerative changes throughout the spine. No ventral or inguinal hernias. Impression: 1. New right renal atrophy with pelvocaliectasis. New nonobstructing left renal micro-calculus. 2. Again chronic findings including calcified uterine fibroids, sigmoid diverticulosis, arteriosclerotic disease, and chronic bony findings. 3. Remaining CT abdomen/pelvis without contrast exam is negative.
[2023-03-14 14:43] VITALS: O2SAT 96
== END 2023-03-14 14:54 | disposition home or self-care (01) ==
LOC: ED 12:40
DX: N39.0 Urinary tract infection, site not specified (principal); R10.32 Left lower quadrant pain; I11.0 Hypertensive heart disease with heart failure; I50.9 Heart failure, unspecified; Z79.02 Long term (current) use of antithrombotics/antiplatelets; Z79.899 Other long term (current) drug therapy
CPT/HCPCS: 36415; 74176; 80053; 81001; 82150; 83605; 83690; 85025; 87077; 87086; 87186; 96360; 96365; 99284; J0696

== ENCOUNTER 2023-10-25 11:54 | Emergency (ER) | payer OTHER ==
[2023-10-25] MEDS ORDERED: XYLOCAINE 1% HCL 20 ML MDV IJ ONE (11:55)
--- NOTE | 2023-10-25 11:56 | ERPHSYRPT ---
- History of Present Illness Time Seen by Provider: 10/25/23 11:55 Source: patient Exam Limitations: no limitations Physician History: This is a 58-year-old white female patient of Dr. Chaudhry who presents with 3- day history of noticing hematuria when wiping after urinating. Patient has a history of renal issues and noticed of blood on 10/22/2023. She has no pain in her abdomen or flank area. This has happened in the past and she has had a urinary tract infection. Patient is on Brilinta and aspirin. Patient has a history of hypertension, hyperlipidemia, hypothyroidism CHF and hepatitis. She denies chest pain and she denies shortness of breath. Timing/Duration: day(s) (3) Activites at Onset: none Quality: other (No pain) Onset Location: other Pain Radiation: none (No pain) Severity of Pain-Max: none Severity of Pain-Current: none Prior abdominal problems: none Sexual intercourse history: non-contributory Modifying Factors: Improves With: nothing Associated Symptoms: denies symptoms Allergies/Adverse Reactions: morphine Allergy (Verified 06/07/23 11:15) Home Medications: Aspirin EC 81 mg [Ecotrin 81 mg] 81 mg PO DAILY 03/14/23 [History] Metoprolol Tartrate 25 mg [Lopressor 25MG Tab] 25 mg PO DAILY 03/14/23 [History] Ticagrelor [Brilinta] 90 mg PO DAILY 03/14/23 [History] Atorvastatin Calcium 80 mg PO DAILY 06/07/23 [History] Cyanocobalamin (Vitamin B-12) [B-12] 1,000 mcg PO DAILY 06/07/23 [History] Hydralazine HCl 50 mg PO DAILY 06/07/23 [History] Levothyroxine Sodium [Levothyroxine] 100 mcg PO DAILY 06/07/23 [History] Hx Tetanus, Diphtheria Vaccination/Date Given: No Hx Influenza Vaccination/Date Given: Yes Hx Pneumococcal Vaccination/Date Given: No Travel Risk - International Travel Have you traveled outside of the country in past 3 weeks: No - Coronavirus Screening Are you exhibiting any of the following symptoms?: No Close contact with a COVID-19 positive Pt in past 14-21 Days: No - Vaccine Status Have you recieved a Covid-19 vaccination: No Toys Inspector: Moderna - Vaccination Dates Date of 2cond Vaccination (if applicable): 2020 - Review of Systems Constitutional: No Symptoms Eyes: No Symptoms Ears, Nose, & Throat: No Symptoms Respiratory: No Symptoms Cardiac: No Symptoms Abdominal/Gastrointestinal: No Symptoms Genitourinary Symptoms: Hematuria Musculoskeletal: No Symptoms Skin: No Symptoms Neurological: No Symptoms Psychological: No Symptoms Endocrine: No Symptoms Hematologic/Lymphatic: No Symptoms Immunological/Allergic: No Symptoms All Other Systems: Reviewed and Negative - Past Medical History Pertinent Past Medical History: Yes Neurological History: No Pertinent History ENT History: No Pertinent History Cardiac History: Congestive Heart Failure, Hypertension Respiratory History: No Pertinent History Endocrine Medical History: Hypothyroidism Musculoskeletal History: Other GI Medical History: No Pertinent History, Hepatitis History: Renal Disease Psycho-Social History: No Pertinent History Female Reproductive Disorders: No Pertinent History Other Medical History: hepatitis c, Urologist: Dr. Ibarra - Past Surgical History Past Surgical History: Yes Neuro Surgical History: No Pertinent History Cardiac: No Pertinent History Respiratory: No Pertinent History Gastrointestinal: No Pertinent History Genitourinary: No Pertinent History Musculoskeletal: Orthopedic Surgery Female Surgical History: Section Other Surgical History: left rotator cuff, R kidney stent. 2 cardiac stent - Social History Smoking Status: Former smoker How long have you smoked: 40 years Exposure to second hand smoke: No Drug Use: marijuana Patient Lives Alone: No Significant Family History: no pertinent family hx - Nursing Vital Signs Nursing Vital Signs: Initial Vital Signs Temperature 97.2 F 10/25/23 12:06 Pulse Rate 70 10/25/23 12:06 Respiratory Rate 20 10/25/23 12:06 Blood Pressure 107/51 10/25/23 12:06 O2 Sat by Pulse Oximetry 96 10/25/23 12:06 Pain Scale Pain Intensity 0 - Physical Exam General Appearance: no apparent distress, alert Eye Exam: PERRL/EOMI, eyes nml inspection Ears, Nose, Throat Exam: normal ENT inspection, moist mucous membranes Neck Exam: normal inspection, non-tender, supple, full range of motion Respiratory Exam: lungs clear, airway intact, No chest tenderness, No respiratory distress Gastrointestinal/Abdomen Exam: soft, normal bowel sounds, No tenderness Pelvic Exam: not done Rectal Exam: not done Back Exam: normal inspection, normal range of motion, No CVA tenderness, No vertebral tenderness Extremity Exam: normal inspection, normal range of motion, pelvis stable Neurologic Exam: alert, oriented x 3, cooperative, fire alarm installer II-XII nml as tested, normal mood/affect, nml cerebellar function, nml station & gait, sensation nml Skin Exam: normal color, warm, dry Lymphatic Exam: No adenopathy SpO2 Interpretation: normal O2 Delivery: Room Air - Course Nursing assessment & vital signs reviewed: Yes Ordered Tests: Active Orders 24 hr Category Date Time Status CULTURE,URINE Stat Lab 10/25/23 12:03 Received UA W/RFX UR CULTURE Stat Lab 10/25/23 12:03 Completed Lab/Rad Data: Laboratory Results 10/25/23 Range/Units 12:03 Urine Color Yellow (Yellow) Urine Appearance Cloudy A (Clear) Urine pH 6.0 (4.6-8.0) Ur Specific [place] 1.015 (1.005-1.030) Urine Protein 30 (Negative) Urine Glucose (UA) Negative (Negative) mg/dL Urine Ketones Negative (Negative) Urine Blood Negative (Negative) Urine Nitrite Negative (Negative) Urine Bilirubin Negative (Negative) Urine Urobilinogen 0.2 (0.2) mg/dL Ur Leukocyte Esterase Moderate A (Negative) U Hyaline Cast (Auto) NONE SEEN (0-2) /LPF Urine Microscopic RBC 6-10 A (0-5) /HPF Urine Microscopic WBC >100 A (0-5) /HPF Ur Epithelial Cells Few (None Seen) /HPF Urine Bacteria Few A (None Seen) /HPF Urine Culture Reflexed YES (NO) - Progress Progress: unchanged Air Movement: good Progress Note: 10/25/23 12:54 This patient's medical issue is 1 of low complexity. The level of complexity and the workup performed is based on review of the patient's past medical history, review of the patient's medication list, review of the patient's drug allergy list, history of present illness and physical findings on examination. The workup in this patient includes obtaining a urinalysis. Differential diagnosis includes hematuria, urinary tract infection, hemorrhagic cystitis, ureterolithiasis. I interpreted the laboratory data. The patient has a urinary tract infection. Counseled pt/family regarding: lab results, diagnosis, need for follow-up Medical Desision Making - Diagnostic Testing Diagnostic test were ordered, analyzed, and reviewed by me: Yes - Risk of complications The pt has a mod risk of morbidity or mortality based on: Need for prescription drug management - Departure Departure Disposition: Home Clinical Impression: Hematuria, UTI (urinary tract infection) Condition: Stable Critical Care Time: No Referrals: COBY CHAUDHRY DO [Primary Care Provider] - Follow up/PCP as directed Additional Instructions: Drink plenty of fluids. Take your antibiotics as prescribed. Follow-up with your primary care provider by phone to make arranges for follow-up appointment in the next 5 to 7 days. Prescriptions: Ciprofloxacin [Cipro 500 MG] 500 mg PO BID #14 tablet
[2023-10-25 12:09] VITALS: BP 107/51; PULSE 70; RESP 20; TEMP 97.2; O2SAT 96
[2023-10-25 12:36] LABS: ADD URINE CULTURE? YES (NO); Appearance Cloudy (Clear); Bacteria Few /HPF (None Seen); Bilirubin Negative (Negative); Blood Negative (Negative); Epithelial Cells Few /HPF (None Seen); Glucose, Urine Negative (Negative); Hyaline Casts NONE SEEN /LPF (0-2); Ketones Negative (Negative); Leukocyte Esterase Moderate (Negative); Nitrite Negative (Negative); Protein,Urine Dip 30 (Negative); Specific Gravity 1.015 (1.005-1.030); Urobilinogen 0.2 mg/dL (0.2); WBC >100 /HPF (0-5)
[2023-10-25] MEDS ORDERED: Rocephin 1000 MG INJ IM ONE (12:57)
[2023-10-25] MEDS ORDERED: Rocephin 1000 MG INJ ONE (13:08)
== END 2023-10-25 13:39 | disposition home or self-care (01) ==
LOC: ED 11:54
DX: N39.0 Urinary tract infection, site not specified (principal); R31.9 Hematuria, unspecified; E78.5 Hyperlipidemia, unspecified; I11.0 Hypertensive heart disease with heart failure; I50.9 Heart failure, unspecified; Z79.02 Long term (current) use of antithrombotics/antiplatelets; Z79.899 Other long term (current) drug therapy
CPT/HCPCS: 81001; 87077; 87086; 87186; 96372; 99283; J0696

== ENCOUNTER 2024-08-19 13:13 | Day surgery (SDC) | payer MEDICAID, OTHER ==
[2024-08-19] MEDS ORDERED: BUPIVACAINE 0.5% VIAL IJ ONE (13:14)
[2024-08-19] MEDS ORDERED: Depo-Medrol 40 MG/ML IM ONE (13:14)
[2024-08-19] MEDS ORDERED: DIPRIVAN 200 MG/20 ML IV ONE (15:16)
--- NOTE | 2024-08-19 16:26 | XRAY ---
Indication: Bilateral SI joint injection. Intraoperative fluoroscopy provided for 19 seconds. 2 digital spot image submitted for interpretation demonstrates posterior needle tips projecting over the expected left and right SI joints. Small amount of contrast injected for needle tip placement. Correlate with intraoperative findings/report.
--- NOTE | 2024-08-19 16:59 | XRAY ---
19 seconds of fluoroscopy was used in surgery for a bilateral sacroiliac joint injection.
== END 2024-08-19 15:44 | disposition home or self-care (01) ==
LOC: SDC-PAIN 13:13
PROVIDERS: ATTEND Psychiatry & Neurology Pain Medicine
DX: M46.1 Sacroiliitis, not elsewhere classified (principal)
CPT/HCPCS: 72202; 77002; J2704